=== PATIENT | female | born 1965 | race Caucasian/White ===

== ENCOUNTER 2017-02-16 22:07 | Emergency (ER) | payer MEDICAID ==
[2017-02-16 22:33] VITALS: BP 124/81
[2017-02-16] MEDS ORDERED: Insulin Aspart 100 Units/ML 3 ML Pen SUBCUT ONE (22:37)
[2017-02-16] MEDS: Insulin Aspart 100 Units/ML 3 ML Pen SUBCUT ONE ×2 (22:38→23:41)
--- NOTE | 2017-02-16 23:52 | ER ---
DATE SEEN: 02/16/2017 TIME SEEN: 10 p.m. REASON FOR VISIT: "I need refill of insulin." HISTORY OF PRESENT ILLNESS: A 51-year-old female with type 1 diabetes, poorly controlled, came to the ER because she needed a refill of NovoLog. She ran out this morning. She complains of mild headache, but denies nausea, vomiting, weakness or any signs of infection. PAST MEDICAL HISTORY: Hyponatremia, type 1 diabetes, UTI, dehydration, and depression. MEDICATIONS: Please see the nurse's notes. ALLERGIES: Also reviewed and updated. PHYSICAL EXAMINATION: GENERAL: She is well hydrated. VITAL SIGNS: Her blood pressure is normal and temperature is 98.4. ENT: Negative. CHEST: Clear. Heart: Regular rhythm. EXTREMITIES: No edema. LABORATORY DATA: Sodium was 126 and chloride 95. Anion gap is 13 and glucose is 405. IMPRESSION: 1. Hyponatremia. 2. Hyperglycemia. PLAN: I advised her to take lots of fluids. I did suggest IV crystalloid in the emergency room, but patient is in a hurry and promised to take fluids orally. I reviewed previous records and noted that her sodium has been 118 at one point last year, so this is not anything new. Followup was advised on Saturday with myself or any primary care physician in the [facility]. /[id number] RONNY/LESLI
== END 2017-02-16 23:35 | disposition home or self-care (01) ==
LOC: FB.ED 22:07
DX: E10.65 Type 1 diabetes mellitus with hyperglycemia (principal); E87.1 Hypo-osmolality and hyponatremia; Z76.0 Encounter for issue of repeat prescription
CPT/HCPCS: 36415; 80048; 82962; 85025; 96372; 99283; A9270

== ENCOUNTER 2017-03-17 19:17 | Emergency (ER) | payer MEDICAID ==
[2017-03-17] MEDS ORDERED: Nicotine 14 MG/24 Hr Patch TRDERM ONE (19:41)
[2017-03-17] MEDS ORDERED: Ketorolac 60 MG/2 ML SDV IM ONE (19:42)
[2017-03-17 20:00] LABS: ACETAMINOPHEN 16 ug/mL (10-30)
--- NOTE | 2017-03-17 21:00 | EDM.PDOC ---
ED HPI GENERAL MEDICAL PROBLEM - General Chief Complaint: Behavioral/Psych Stated Complaint: SUICIDAL Time Seen by Provider: 03/17/17 20:00 Source of Information: Reports: Patient History Limitations: Reports: No Limitations - History of Present Illness INITIAL COMMENTS - FREE TEXT/NARRATIVE: Patient with history of depression and psychosis states she has been worse since seeing her therapist last week, and had some medicine changes. Being having more visual and auditory hallucinations. Today didn't feel safe alone felt like she would hurt herself or others. Onset: Today Frontal Headache Pain Score (Numeric/FACES): 7 - Related Data Allergies Allergy/AdvReac Type Severity Reaction Status Date / Time olanzapine [From Zyprexa] Allergy Unknown Swelling Verified 03/17/17 19:22 Penicillins Allergy Unknown Anaphylactic Verified 03/17/17 19:22 Shock Sulfa (Sulfonamide Allergy Unknown Chills Verified 03/17/17 19:22 Antibiotics) clindamycin Allergy Nausea Verified 03/17/17 19:22 raw tomatoes Allergy Unknown Rash Uncoded 03/17/17 19:22 Bees Allergy Swelling Uncoded 03/17/17 19:22 Home Meds: Home Meds RX: Subcutaneous Insulin Pump [Insulin Pump] 1 each [facility] ASDIRECTED 11/23/15 [ History] DULoxetine [Cymbalta] 60 mg PO DAILY 02/16/17 [History] QUEtiapine [SEROquel] 500 mg PO BEDTIME 02/16/17 [History] RX: LORazepam 1 mg PO BEDTIME 02/16/17 [History] RX: Melatonin 10 mg PO BEDTIME 02/16/17 [History] traZODone [traZODone] 150 mg PO BEDTIME 02/16/17 [History] QUEtiapine [SEROquel] 1 tab PO DAILY 03/17/17 [History] RX: Benztropine [Cogentin] 1 tab PO BID PRN 03/17/17 [History] RX: Haloperidol [Haldol] 2 tab PO BID 03/17/17 [History] RX: hydrOXYzine HCl [hydrOXYzine] 1 tab PO DAILY PRN 03/17/17 [History] Past Medical History HEENT History: Reports: Impaired Vision Respiratory History: Reports: Asthma, Intubation, Previous, Pneumonia, Recurrent Gastrointestinal History: Reports: Pancreatitis Genitourinary History: Reports: Diabetic Nephropathy, Renal Disease, Urinary Incontinence Other Genitourinary History: renal nodules CARD PLACER History: Reports: Other OB/BYN History: Musculoskeletal History: Reports: Arthritis, Back Pain, Chronic, Fibromyalgia Neurological History: Reports: Headaches, Chronic, Neuropathy, Diabetic Other Neuro History: Has pain and difficulty walking due to neuropathy, uses wheelchair to get around. Psychiatric History: Reports: Anxiety, Bipolar, Depression, Hallucinations, Psych Hospitalization(s), PTSD, Schizophrenia, Suicide Attempt Endocrine/Metabolic History: Reports: Diabetes, Type II Dermatologic History: Reports: Cellulitis - Infectious Disease History Infectious Disease History: Reports: Chicken Pox - Past Surgical History HEENT Surgical History: Reports: Oral Surgery GI Surgical History: Reports: Appendectomy, Cholecystectomy, Hernia, Abdominal Musculoskeletal Surgical History: Reports: Arthroscopic Knee, Arthroscopic Procedure Social & Family History - Family History Family Medical History: Unobtainable Other HEENT Family History: PT IS ADOPTED. DOES NOT KNOW HX - Tobacco Use Smoking Status *Q: Current Every Day Smoker Years of Tobacco use: 38 Packs/Tins Daily: 1 Used Tobacco, but Quit: No Second Hand Smoke Exposure: No - Caffeine Use Caffeine Use: Reports: Soda - Recreational Drug Use Recreational Drug Use: No ED ROS GENERAL - Review of Systems Review Of Systems: ROS reveals no pertinent complaints other than HPI. Constitutional: Reports: No Symptoms Respiratory: Reports: No Symptoms ED EXAM, BEHAVIORAL HEALTH - Physical Exam Exam: See Below Exam Limited By: No Limitations General Appearance: Alert Throat/Mouth: Normal Inspection Head: Atraumatic Respiratory/Chest: No Respiratory Distress Cardiovascular: Normal Peripheral Pulses, Regular Rate, Rhythm Neurological: Alert Psychiatric: Depressed Mood, Homicidal Thoughts, Suicidal Thoughts Skin Exam: Warm COURSE, BEHAVIORAL HEALTH COMP - Course Vital Signs: Last Vital Signs Temp 36.7 C 03/17/17 19:30 Pulse 90 03/17/17 19:30 Resp 18 03/17/17 19:30 BP 136/71 03/17/17 19:30 Pulse Ox 98 03/17/17 19:30 Orders, Labs, Meds: Active Orders 24 hr Category Date Time Status CULTURE URINE [RM] Stat Lab 03/17/17 20:20 Received TSH ULTRASENSITIVE [CHEM] Stat Lab 03/17/17 19:40 Received Laboratory Tests 03/17/17 03/17/17 03/17/17 Range/Units 19:40 19:40 19:40 WBC 9.0 (4.5-12.0) X10-3/uL RBC 5.08 (3.23-5.20) x10(6)uL Hgb 16.5 H (11.5-15.5) g/dL Hct 47.3 (30.0-51.3) % MCV 93.1 (80-96) fL MCH 32.5 (27.7-33.6) pg MCHC 34.9 (32.2-35.4) g/dL RDW 13.1 (11.5-15.5) % Plt Count 373 H (125-369) X10(3)uL MPV 8.2 (7.4-10.4) fL Neut % (Auto) 68.9 (46-82) % Lymph % (Auto) 24.2 (13-37) % Independence % (Auto) 4.4 (4-12) % Eos % (Auto) 1 (1.0-5.0) % Baso % (Auto) 1 (0-2) % Neut # (Auto) 6.2 (1.6-8.3) # Lymph # (Auto) 2.2 (0.6-5.0) # Independence # (Auto) 0.4 (0.0-1.3) # Eos # (Auto) 0.1 (0.0-0.8) # Baso # (Auto) 0.1 (0.0-0.2) # Sodium 126 L (135-145) mmol/L Potassium 4.2 (3.5-5.3) mmol/L Chloride 93 L (100-110) mmol/L Carbon Dioxide 23 (23-29) mmol/L BUN 10 (5-20) mg/dL Creatinine 0.7 (0.6-1.3) mg/dL Est Cr Clr Drug Dosing 100.51 mL/min Estimated GFR (MDRD) > 60 (>60) BUN/Creatinine Ratio 14.3 (9-20) Glucose 183 H D (80-116) mg/dL Calcium 9.1 (8.6-10.2) mg/dL Urine Color (YELLOW) Urine Appearance (CLEAR) Urine pH (5.0-6.5) Ur Specific Eden (1.010-1.025) Urine Protein (NEGATIVE) mg/dL Urine Glucose (UA) (NEGATIVE) mg/dL Urine Ketones (NEGATIVE) mg/dL Urine Occult Blood (NEGATIVE) Urine Nitrite (NEGATIVE) Urine Bilirubin (NEGATIVE) Urine Urobilinogen (NEGATIVE) mg/dL Ur Leukocyte Esterase (NEGATIVE) Urine RBC (0) Urine WBC (0) Ur Squamous Epith Cells (NS,R,O) Urine Bacteria (NS) Urine Opiates Screen (NEGATIVE) Ur Oxycodone Screen (NEGATIVE) Ur Propoxyphene Screen (NEGATIVE) Acetaminophen 16 (10-30) ug/mL Ur Barbituates Screen (NEGATIVE) Ur Tricyclics Screen (NEGATIVE) Ur Phencyclidine Scrn (NEGATIVE) Ur Amphetamine Screen (NEGATIVE) Urine MDMA Screen (NEGATIVE) U Benzodiazepines Scrn (NEGATIVE) U Cocaine Metab Screen (NEGATIVE) U Marijuana (THC) Screen (NEGATIVE) Ethyl Alcohol < 0.01 (<0.01) % 03/17/17 03/17/17 Range/Units 20:20 20:20 WBC (4.5-12.0) X10-3/uL RBC (3.23-5.20) x10(6)uL Hgb (11.5-15.5) g/dL Hct (30.0-51.3) % MCV (80-96) fL MCH (27.7-33.6) pg MCHC (32.2-35.4) g/dL RDW (11.5-15.5) % Plt Count (125-369) X10(3)uL MPV (7.4-10.4) fL Neut % (Auto) (46-82) % Lymph % (Auto) (13-37) % Independence % (Auto) (4-12) % Eos % (Auto) (1.0-5.0) % Baso % (Auto) (0-2) % Neut # (Auto) (1.6-8.3) # Lymph # (Auto) (0.6-5.0) # Independence # (Auto) (0.0-1.3) # Eos # (Auto) (0.0-0.8) # Baso # (Auto) (0.0-0.2) # Sodium (135-145) mmol/L Potassium (3.5-5.3) mmol/L Chloride (100-110) mmol/L Carbon Dioxide (23-29) mmol/L BUN (5-20) mg/dL Creatinine (0.6-1.3) mg/dL Est Cr Clr Drug Dosing mL/min Estimated GFR (MDRD) (>60) BUN/Creatinine Ratio (9-20) Glucose (80-116) mg/dL Calcium (8.6-10.2) mg/dL Urine Color Yellow (YELLOW) Urine Appearance Slightly cloudy (CLEAR) Urine pH 5.0 (5.0-6.5) Ur Specific Eden 1.015 (1.010-1.025) Urine Protein Negative (NEGATIVE) mg/dL Urine Glucose (UA) Normal (NEGATIVE) mg/dL Urine Ketones Negative (NEGATIVE) mg/dL Urine Occult Blood Negative (NEGATIVE) Urine Nitrite Negative (NEGATIVE) Urine Bilirubin Negative (NEGATIVE) Urine Urobilinogen Normal (NEGATIVE) mg/dL Ur Leukocyte Esterase Small H (NEGATIVE) Urine RBC 0-5 (0) Urine WBC 5-10 (0) Ur Squamous Epith Cells Occasional (NS,R,O) Urine Bacteria Many H (NS) Urine Opiates Screen Negative (NEGATIVE) Ur Oxycodone Screen Negative (NEGATIVE) Ur Propoxyphene Screen Negative (NEGATIVE) Acetaminophen (10-30) ug/mL Ur Barbituates Screen Negative (NEGATIVE) Ur Tricyclics Screen Negative (NEGATIVE) Ur Phencyclidine Scrn Negative (NEGATIVE) Ur Amphetamine Screen Negative (NEGATIVE) Urine MDMA Screen Negative (NEGATIVE) U Benzodiazepines Scrn Positive H (NEGATIVE) U Cocaine Metab Screen Negative (NEGATIVE) U Marijuana (THC) Screen Negative (NEGATIVE) Ethyl Alcohol (<0.01) % Medications Discontinued Medications Generic Name Dose Route Start Last Admin Trade Name Ramonita PRN Reason Stop Dose Admin Ketorolac Tromethamine 60 mg 03/17/17 19:42 03/17/17 19:55 Toradol IM 03/17/17 19:43 60 mg ONETIME ONE Administration Nicotine 14 mg 03/17/17 19:41 03/17/17 19:56 Habitrol TRDERM 03/17/17 19:42 14 mg ONETIME ONE Administration Departure - Departure Time of Disposition: 21:15 Disposition: DC/Tfer to Psych Hosp/Unit 65 Condition: fair Clinical Impression: Hallucinations - Discharge Information Referrals: Dennis Lemon MD [Primary Care Provider] - Forms: ED Department Discharge - My Orders Last 24 Hours: My Active Orders 03/17/17 19:40 TSH ULTRASENSITIVE [CHEM] Stat 03/17/17 20:20 CULTURE URINE [RM] Stat - Assessment/Plan Last 24 Hours: My Active Orders 03/17/17 19:40 TSH ULTRASENSITIVE [CHEM] Stat 03/17/17 20:20 CULTURE URINE [RM] Stat
[2017-03-18 05:09] VITALS: BP 130/63
--- NOTE | 2017-03-20 00:47 | ER ---
DATE SEEN: 03/17/2017 ADDENDUM: Urine culture result, Klebsiella pneumoniae sensitive to all antibiotics. The patient was transferred to [facility] by Dr. Dodge on 03/17/2017, and urine culture was performed. I have called the [facility] and talked to Xena and Mary and we faxed report to them so they can treat this urinary tract infection appropriately. /[id number] JAKE/LESLI MOON
== END 2017-03-18 05:55 ==
LOC: FB.ED 19:17
DX: R44.0 Auditory hallucinations (principal); R44.1 Visual hallucinations; R45.851 Suicidal ideations; J45.909 Unspecified asthma, uncomplicated; E11.40 Type 2 diabetes mellitus with diabetic neuropathy, unspecified; E11.21 Type 2 diabetes mellitus with diabetic nephropathy; M19.90 Unspecified osteoarthritis, unspecified site; F41.9 Anxiety disorder, unspecified; F17.210 Nicotine dependence, cigarettes, uncomplicated; Z90.49 Acquired absence of other specified parts of digestive tract; Z98.890 Other specified postprocedural states; Z88.0 Allergy status to penicillin; Z88.8 Allergy status to other drugs, medicaments and biological substances; Z87.442 Personal history of urinary calculi; Z91.030 Bee allergy status; Z88.1 Allergy status to other antibiotic agents; Z91.018 Allergy to other foods; Z88.2 Allergy status to sulfonamides; Z79.899 Other long term (current) drug therapy; Z87.01 Personal history of pneumonia (recurrent)
CPT/HCPCS: 36415; 80048; 80305; 81001; 82962; 84443; 85025; 87086; 87088; 87186; 96372; 99285; A9270; G0480; J1885

== ENCOUNTER 2018-03-08 17:51 | Emergency (ER) | payer MEDICAID, OTHER ==
[2018-03-08] MEDS: traMADol 50 MG Tab PO ONE (19:14)
[2018-03-08 22:16] VITALS: BP 142/70
--- NOTE | 2018-03-09 09:33 | ER ---
DATE SEEN: 03/08/2018 ADDENDUM: TIME SEEN: The patient was seen at 1825 hours. PLAN: She has already a followup appointment with her primary care doctor within the next several days. No changes in medication. /[id number] JAKE/LESLI
--- NOTE | 2018-03-10 09:25 | ER ---
DATE SEEN: 03/08/2018 TIME SEEN: 2000 hours. ADDENDUM: I was asked to see the patient for shoulder pain. She had seen Dr. Saleem. She requested to have a brace. Frequent falls. Pain is in the right arm, to the neck, and to the back, moderate in intensity. REVIEW OF SYSTEMS: No chest pain or shortness of breath. PAST MEDICAL HISTORY: Type 1 diabetes, schizophrenia. PHYSICAL EXAMINATION: GENERAL: Not in distress. VITAL SIGNS: Blood pressure is normal. Pulse is 92. EXTREMITIES: Right shoulder, some tenderness to palpation, but no signs of trauma. Positive impingement sign. Decreased range of motion on abduction. DIAGNOSTIC DATA: CT spine and head and shoulder x-ray were unremarkable to my interpretation. Official report and final read pending. IMPRESSION: Right shoulder pain due to rotator cuff tendinitis. PLAN: Shoulder sling to wear for 2 days. NSAIDs p.r.n. Follow up in the office. Consider physical therapy evaluation and treatment. /[id number] RONNY/LESLI
--- NOTE | 2018-03-10 12:19 | CR ---
INDICATION: Right shoulder pain. SHOULDER: Five images of the right shoulder in 3 projections were obtained and revealed no evidence of a fracture, dislocation or other significant bone or joint abnormality. Adjacent ribs appear intact. MTDD
--- NOTE | 2018-03-10 13:10 | CT ---
INDICATION: Falling chronically, most likely due to diabetes mellitus peripheral neuropathy. CT HEAD WITHOUT CONTRAST: Serial contiguous 2.5 and 5 mm sections were obtained through the brain without contrast 03/08/2018. Calcifications are noted in the left vertebral artery and internal carotid arteries. There also appears to be calcification in the basilar and right vertebral artery distally. Total exam DLP = 950.31 mGy-cm. No shift of midline structures was noted. Ventricles appear to be unremarkable. A lacunar infarct is noted at the right caudate nucleus. An additional 1 or 2 lacunar infarcts are suggested in the right basal ganglia. No finding to strongly suggest an acute intracranial abnormality was seen - no bleeding site or hematoma was noted. There does appear to be mild frontal cortical atrophy with subdural hygromas present. Visualized paranasal sinuses, except for a small retention cyst in a left sphenoidal air cell, and mastoid air cells were well-aerated. No cranial fracture site was noted. IMPRESSION: 1. No acute intracranial abnormality - no bleeding site or hematoma. 2. Lacunar infarcts on the right. 3. Cerebrovascular disease. 4. Retention cyst left sphenoidal air cell. [facility]
--- NOTE | 2018-03-10 13:21 | CT ---
INDICATION: Fall, right brachial plexopathy. CT CERVICAL SPINE WITHOUT CONTRAST: Spiral 2.5 mm axial sections were obtained through the cervical spine without contrast and revealed moderate degenerative changes with some narrowing at the atlantoodontoid joint. Hypertrophic spurring and some sclerosis is also present at that joint. Total exam DLP = 565.86 mGy-cm. There are some mild anterior hypertrophic changes off the C6-7 vertebral bodies. Vertebral body and disk heights were fairly well maintained. There is some straightening of the normal cervical lordosis, which could be positional but should be correlated clinically. There appears to be a tilt of the cervical spine to the left of moderate degree. This could be positional. A definite fracture or dislocation was not identified. Prevertebral space and bone density appeared to be normal. IMPRESSION: 1. No acute fracture or dislocation. 2. The odontoid appears to be intact, but there are degenerative changes at the atlantoodontoid joint. The atlas also appears to be intact. MTDD
--- NOTE | 2018-03-10 15:02 | ER ---
DATE SEEN: 03/08/2018 HISTORY OF PRESENT ILLNESS: This is a 52-year-old, , chronic smoker of 2 packs a day for [id number] and has chronic history of falling, fell 2 times yesterday and fell today. Today, she fell x2. While falling today, she fell onto her left side, and has neck discomfort that radiates down the right arm, with dysesthesia to the wrist from the anterior part of her arm. PAST MEDICAL HISTORY: Significant for psychosis; schizophrenia; depression; anxiety disorder; hallucination, visual and auditory; type 2 diabetes with diabetic peripheral neuropathy; early satiety; constipation; retinopathy; and falling. Right mid upper extremity lipoma, large, no change. Renal nodule. Urine incontinence. History of pneumonia in the past. History of pancreatitis in the past. Asthma with history of intubation. PREVIOUS SURGERIES: Appendectomy, hysterectomy, cholecystectomy, abdominal hernia surgery, and arthroscopic knee evaluation with arthritis in the knees. REVIEW OF SYSTEMS: Negative except as noted above. ALLERGIES: Zyprexa, penicillin, sulfa, clindamycin, tomatoes, and peas. MEDICATIONS: 1. Ibuprofen. 2. Cymbalta 60 mg daily. 3. Cogentin 2 tabs b.i.d. as needed. 4. Haldol 3 tabs p.o. daily. 5. Quetiapine 800 mg at bedtime. 6. Melatonin 10 mg at bedtime. 7. Lorazepam 1.5 at bedtime. 8. Trazodone 150 mg at bedtime. 9. Hydroxyzine 1 tablet daily p.r.n. 10.Insulin pump. She is not aware how her glucose is running, it has not been checked for some time. DIAGNOSTIC STUDIES: CAT scan of the head has been done several years ago. She has ankylosing spondylitis also with hypertension. The last head CT scan was 10 years ago. PHYSICAL EXAMINATION: VITAL SIGNS: Blood pressure 128/54, pulse rate 83, respirations 20, oxygen saturation 92% on room air, and temperature is 36.7 degrees centigrade. GENERAL: When I walked in to the room, the patient was sitting on a wheelchair. I asked why she is sitting on a wheelchair, and she says "that is the best way for me to get around, otherwise I fall down a lot. I have this diabetic peripheral neuropathy and difficulty with walking." HEENT: The patient is edentulous and smells of smoke. PERRLA intact. EOMs normal. Hearing is good. Pharynx is without abnormality. Gag in place. Tongue midline. Uvula midline. NECK: No cervical adenopathy, thyromegaly, or masses. Neck shows no cervical tenderness in the cervical spine. LUNGS: Clear without rales or rhonchi or wheezes. HEART: S1 and S2. No murmur. No chest wall pain. ABDOMEN: Nontender. No guarding or abdominal discomfort. She has had moderate increased abdominal girth. Old umbilical laparoscopic scar noted without hernia. No hernia has been present. Bowel sounds present. MUSCULOSKELETAL: She has moderate pain when she rotates her head to the left. She fell to the left, but she has pain in the right brachial plexus area that radiates down to the antecubital fossa, and then slightly to the mid forearm on the right-hand side. No loss of sensation. She has clubbing of fingers. No rashes noted. I did not have her stand up, but she has good muscle strength in upper and lower extremities. No pronator drift and good strength in the lower extremities. Deep tendon reflexes, after several tries, she has 1+ in upper and lower extremities, biceps, knee jerks, and ankle jerks. SKIN: She has stasis dermatitis in mid lower legs to her toes without any lesions or dermatologic break in the skin or sign of infection. WORKING DIAGNOSES: 1. Cervical spine injury with strain of the brachial plexus on the right side secondary to falling today. 2. History of falling all the time secondary to diabetic peripheral neuropathy. 3. Diabetic retinopathy, gastroenteropathy, and also insulin-dependent diabetic with insulin pump. 4. Obesity. 5. She does not have hypertension. 6. Hallucinations, not presently. 7. Right arm lipoma, benign, unchanged. 8. Ankylosing spondylitis. PLAN: The patient's CBC, CMP, hemoglobin A1c, CT cervical spine, and CT head. /[id number] LS/MODL
--- NOTE | 2018-03-14 10:58 | ER ---
DATE SEEN: 03/08/2018 ADDENDUM: Urine culture came back as Klebsiella pneumoniae. It was a cathed specimen from yesterday. The patient is sensitive to all the medicines. The patient was started on Cipro 500 mg, 6 tablets, 1 tablet b.i.d. for 3 days to treat the urinary tract infection. Prescription had been [facility] in [facility], (I believe this is in [place]). Also, I called her home to inform her that she had a urinary tract infection and needed to be started on antibiotic. No answer was noted after 3 calls. Consequently, a message was left at 1750 hours for her to brain picker the Cipro 500 mg b.i.d. at [facility] and follow up with doctor in a week with a recheck of urine. /[id number] JAKE/LESLI
== END 2018-03-08 20:47 | disposition home or self-care (01) ==
LOC: FB.ED 17:51
DX: S16.1XXA Strain of muscle, fascia and tendon at neck level, initial encounter (principal); F20.9 Schizophrenia, unspecified; F32.9 Major depressive disorder, single episode, unspecified; F41.9 Anxiety disorder, unspecified; E11.42 Type 2 diabetes mellitus with diabetic polyneuropathy; J45.909 Unspecified asthma, uncomplicated; E66.9 Obesity, unspecified; I10 Essential (primary) hypertension; M45.9 Ankylosing spondylitis of unspecified sites in spine; D17.21 Benign lipomatous neoplasm of skin and subcutaneous tissue of right arm; E11.319 Type 2 diabetes mellitus with unspecified diabetic retinopathy without macular edema; Z91.81 History of falling; Z88.0 Allergy status to penicillin; Z88.2 Allergy status to sulfonamides; Z88.1 Allergy status to other antibiotic agents; Z88.8 Allergy status to other drugs, medicaments and biological substances; Z90.49 Acquired absence of other specified parts of digestive tract; F17.210 Nicotine dependence, cigarettes, uncomplicated; W19.XXXA Unspecified fall, initial encounter; Z79.4 Long term (current) use of insulin; Z68.35 Body mass index [BMI] 35.0-35.9, adult
CPT/HCPCS: 36415; 70450; 72125; 73030; 80053; 81001; 83036; 85025; 87086; 87088; 87186; 99284; A9270

== ENCOUNTER 2018-04-26 06:45 | Emergency (ER) | payer MEDICAID ==
[2018-04-26] MEDS ORDERED: Ketorolac 30 MG/ML SDV IVPUSH ONE (07:01)
[2018-04-26] MEDS ORDERED: Aspirin 81 MG Tab.Chew PO ONE (07:03)
--- NOTE | 2018-04-26 07:17 | EDM.PDOC ---
ED HPI GENERAL MEDICAL PROBLEM - General Chief Complaint: Chest Pain Stated Complaint: CHEST PAIN Time Seen by Provider: 04/26/18 07:05 Source of Information: Reports: Patient, EMS History Limitations: Reports: No Limitations - History of Present Illness INITIAL COMMENTS - FREE TEXT/NARRATIVE: Awoke w/ substernal non-radiating chest pain @2 hours ago. Characterized as a sharpness and heaviness. No prior h/o cardiac dz. Also c/o cough and slight shortness of breath. Onset: Today Duration: Hour(s): (2) Location: Reports: Chest Severity: Moderate chest Pain Score (Numeric/FACES): 7 - Related Data Allergies Allergy/AdvReac Type Severity Reaction Status Date / Time olanzapine [From Zyprexa] Allergy Unknown Swelling Verified 04/26/18 07:57 Penicillins Allergy Unknown Anaphylactic Verified 04/26/18 07:57 Shock Sulfa (Sulfonamide Allergy Unknown Chills Verified 04/26/18 07:57 Antibiotics) clindamycin Allergy Nausea Verified 04/26/18 07:57 raw tomatoes Allergy Unknown Rash Uncoded 03/17/17 19:22 Bees Allergy Swelling Uncoded 03/17/17 19:22 Home Meds: Home Meds Subcutaneous Insulin Pump [Insulin Pump] 1 each ASDIRECTED 11/23/15 [History] DULoxetine [Cymbalta] 60 mg PO DAILY 02/16/17 [History] LORazepam 1.5 mg PO BEDTIME 02/16/17 [History] QUEtiapine [SEROquel] 800 mg PO BEDTIME 02/16/17 [History] traZODone 150 mg PO BEDTIME 02/16/17 [History] Benztropine [Cogentin] 2 tab PO BID PRN 03/17/17 [History] Haloperidol [Haldol] 3 tab PO DAILY 03/17/17 [History] hydrOXYzine HCl [hydrOXYzine] 1 tab PO DAILY PRN 03/17/17 [History] Ibuprofen 800 mg PO TID 03/08/18 [History] Past Medical History HEENT History: Reports: Impaired Vision Respiratory History: Reports: Asthma, Intubation, Previous, Pneumonia, Recurrent Gastrointestinal History: Reports: Pancreatitis Genitourinary History: Reports: Diabetic Nephropathy, Renal Disease, Urinary Incontinence Other Genitourinary History: renal nodules 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 Psychiatric History: Reports: Anxiety, Bipolar, Depression, Hallucinations, Psych Hospitalization(s), PTSD, Schizophrenia, Suicide Attempt Endocrine/Metabolic History: Reports: Diabetes, Type II Dermatologic History: Reports: Cellulitis - Infectious Disease History Infectious Disease History: Reports: Chicken Pox - Past Surgical History HEENT Surgical History: Reports: Oral Surgery GI Surgical History: Reports: Appendectomy, Cholecystectomy, Hernia, Abdominal Musculoskeletal Surgical History: Reports: Arthroscopic Knee, Arthroscopic Procedure Social & Family History - Family History Family Medical History: Unobtainable Other HEENT Family History: PT IS ADOPTED. DOES NOT KNOW HX - Tobacco Use Smoking Status *Q: Current Every Day Smoker Tobacco Use Within Last Twelve Months: Cigarettes - Caffeine Use Caffeine Use: Reports: Coffee ED ROS GENERAL - Review of Systems Review Of Systems: ROS reveals no pertinent complaints other than HPI. ED EXAM, GENERAL - Physical Exam Exam: See Below Exam Limited By: No Limitations General Appearance: Alert, WD/WN, No Apparent Distress Ears: Normal External Exam Nose: Normal Inspection Throat/Mouth: No Airway Compromise Head: Atraumatic, Normocephalic Neck: Full Range of Motion Respiratory/Chest: No Respiratory Distress, Normal Breath Sounds, Rhonchi (few scattered), Other (+reproducible chest wall tenderness) Cardiovascular: Regular Rate, Rhythm, No Edema, No Murmur, No Rub GI/Abdominal: Soft, Non-Tender Back Exam: Full Range of Motion Extremities: Normal Inspection Neurological: Alert, No Motor/Sensory Deficits Psychiatric: Normal Affect, Normal Mood Skin Exam: Warm, Dry, Intact EKG INTERPRETATION EKG Date: 04/26/18 Time: 07:00 Rhythm: NSR Rate (Beats/Min): 85 Comparison: No Change (04/20/16) EKG Interpretation Comments: No significant change from 04/20/16 Course - Vital Signs Last Recorded V/S: Last Vital Signs Temp 36.4 C 04/26/18 06:50 Pulse 91 04/26/18 06:50 Resp 18 04/26/18 06:50 BP 110/56 L 04/26/18 06:50 Pulse Ox 93 L 04/26/18 06:50 - Orders/Labs/Meds Orders: Active Orders 24 hr Category Date Time Status EKG Documentation Completion [RC] ASDIRECTED Care 04/26/18 07:00 Active CXR [Chest 1V Frontal] [CR] Stat Exams 04/26/18 07:00 Taken EKG 12 Lead [EK] Stat Ther 04/26/18 07:00 Ordered Labs: Laboratory Tests 04/26/18 04/26/18 04/26/18 Range/Units 07:15 07:15 07:15 WBC 8.3 (4.5-12.0) X10-3/uL RBC 5.03 (3.23-5.20) x10(6)uL Hgb 16.3 H (11.5-15.5) g/dL Hct 46.8 (30.0-51.3) % MCV 93.0 (80-96) fL MCH 32.4 (27.7-33.6) pg MCHC 34.8 (32.2-35.4) g/dL RDW 13.3 (11.5-15.5) % Plt Count 324 (125-369) X10(3)uL MPV 8.2 (7.4-10.4) fL Neut % (Auto) 69.3 (46-82) % Lymph % (Auto) 21.3 (13-37) % Dougherty % (Auto) 6.4 (4-12) % Eos % (Auto) 2 (1.0-5.0) % Baso % (Auto) 1 (0-2) % Neut # (Auto) 5.8 (1.6-8.3) # Lymph # (Auto) 1.8 (0.6-5.0) # Dougherty # (Auto) 0.5 (0.0-1.3) # Eos # (Auto) 0.1 (0.0-0.8) # Baso # (Auto) 0.1 (0.0-0.2) # Sodium 128 L (135-145) mmol/L Potassium 3.6 (3.5-5.3) mmol/L Chloride 94 L (100-110) mmol/L Carbon Dioxide 24 (21-32) mmol/L BUN 16 (7-18) mg/dL Creatinine 0.9 (0.55-1.02) mg/dL Est Cr Clr Drug Dosing TNP Estimated GFR (MDRD) > 60 (>60) BUN/Creatinine Ratio 17.8 (9-20) Glucose 104 D (80-116) mg/dL Calcium 8.7 (8.6-10.2) mg/dL Total Bilirubin 0.3 (0.1-1.3) mg/dL AST 13 D (5-25) IU/L ALT 23 D (12-36) U/L Alkaline Phosphatase 115 H (56-112) IU/L Troponin I < 0.017 L (<0.017-0.056) ng/mL Total Protein 6.8 (6.0-8.0) g/dL Albumin 2.8 L (3.5-5.2) g/dL Globulin 4.0 g/dL Albumin/Globulin Ratio 0.7 / Range/Units 08:50 WBC (4.5-12.0) X10-3/uL RBC (3.23-5.20) x10(6)uL Hgb (11.5-15.5) g/dL Hct (30.0-51.3) % MCV (80-96) fL MCH (27.7-33.6) pg MCHC (32.2-35.4) g/dL RDW (11.5-15.5) % Plt Count (125-369) X10(3)uL MPV (7.4-10.4) fL Neut % (Auto) (46-82) % Lymph % (Auto) (13-37) % Dougherty % (Auto) (4-12) % Eos % (Auto) (1.0-5.0) % Baso % (Auto) (0-2) % Neut # (Auto) (1.6-8.3) # Lymph # (Auto) (0.6-5.0) # Dougherty # (Auto) (0.0-1.3) # Eos # (Auto) (0.0-0.8) # Baso # (Auto) (0.0-0.2) # Sodium (135-145) mmol/L Potassium (3.5-5.3) mmol/L Chloride (100-110) mmol/L Carbon Dioxide (21-32) mmol/L BUN (7-18) mg/dL Creatinine (0.55-1.02) mg/dL Est Cr Clr Drug Dosing Estimated GFR (MDRD) (>60) BUN/Creatinine Ratio (9-20) Glucose (80-116) mg/dL Calcium (8.6-10.2) mg/dL Total Bilirubin (0.1-1.3) mg/dL AST (5-25) IU/L ALT (12-36) U/L Alkaline Phosphatase (56-112) IU/L Troponin I < 0.017 L (<0.017-0.056) ng/mL Total Protein (6.0-8.0) g/dL Albumin (3.5-5.2) g/dL Globulin g/dL Albumin/Globulin Ratio Meds: Medications Discontinued Medications Generic Name Dose Route Start Last Admin Trade Name Freq PRN Reason Stop Dose Admin Aspirin 324 mg 04/26/18 07:03 04/26/18 07:06 Aspirin PO 04/26/18 07:04 324 mg ONETIME ONE Administration Ketorolac Tromethamine 15 mg 04/26/18 07:01 04/26/18 07:11 Toradol IVPUSH 04/26/18 07:02 15 mg ONETIME ONE Administration - Radiology Interpretation Free Text/Narrative:: CXR: NAD - Re-Assessments/Exams Free Text/Narrative Re-Assessment/Exam: 04/26/18 09:20 Symptoms resolved. Departure - Departure Time of Disposition: 09:20 Disposition: Home, Self-Care 01 Condition: Good Clinical Impression: Costochondritis, acute Instructions: Costochondritis, [id number] Referrals: PCP,Unknown [Primary Care Provider] - Forms: ED Department Discharge Additional Instructions: Take OTC Ibuprofen as needed. Follow up with your doctor in 2-3 days. Return to the ER if symptoms worsen. - My Orders Last 24 Hours: My Active Orders 04/26/18 07:00 EKG Documentation Completion [RC] ASDIRECTED CXR [Chest 1V Frontal] [CR] Stat EKG 12 Lead [EK] Stat - Assessment/Plan Last 24 Hours: My Active Orders 04/26/18 07:00 EKG Documentation Completion [RC] ASDIRECTED CXR [Chest 1V Frontal] [CR] Stat EKG 12 Lead [EK] Stat
[2018-04-26 09:47] VITALS: BP 112/59
--- NOTE | 2018-04-28 12:52 | CR ---
INDICATIONS: Chest pain. CHEST, ONE VIEW: An AP portable upright view of the chest was obtained, 2017 no comparisons. The chest is rotated to the right. The heart is prominent, but not grossly enlarged, emphasized by the AP positioning and possibly angulation. A definite active infiltrate or effusion was not identified. Overlying EKG leads are noted. IMPRESSION: No acute process. When clinically possible, PA and lateral views of the chest may be helpful for further evaluation. MTDD
== END 2018-04-26 09:30 | disposition home or self-care (01) ==
LOC: FB.ED 06:45
DX: M94.0 Chondrocostal junction syndrome [Tietze] (principal); E11.21 Type 2 diabetes mellitus with diabetic nephropathy; E11.40 Type 2 diabetes mellitus with diabetic neuropathy, unspecified; F17.210 Nicotine dependence, cigarettes, uncomplicated; Z88.0 Allergy status to penicillin; Z88.8 Allergy status to other drugs, medicaments and biological substances; Z91.018 Allergy to other foods; Z88.1 Allergy status to other antibiotic agents; Z88.2 Allergy status to sulfonamides; Z79.899 Other long term (current) drug therapy
CPT/HCPCS: 36415; 71045; 80053; 84484; 85025; 93005; 96374; 99285; A9270; J1885

== ENCOUNTER 2019-01-01 12:53 | Inpatient (IN) | payer MEDICAID ==
[2019-01-01] MEDS: Insulin Lispro 100 Unit/ML 3 ML KwikPen SUBCUT SCH ×2 (15:02→18:27)
[2019-01-01] MEDS: Sodium Chloride 0.9% 1,000 ML IV SCH ×2 (15:07→23:52)
[2019-01-01] MEDS: Levofloxacin/Dextrose 5%-Water 500 MG in Premix Bag 1 BAG IV SCH (15:12)
--- NOTE | 2019-01-01 17:00 | PCM.HP ---
H&P History of Present Illness - General Date of Service: 01/01/19 Admit Problem/Dx: Admission Diagnosis/Problem Admission Diagnosis/Problem UTI, Urinary tract infectious disease Source of Information: Patient, Old Records History Limitations: Reports: No Limitations - History of Present Illness Initial Comments - Free Text/Narative: This is a 53-year-old female who has poorly controlled type 1 diabetes, who presented to the clinic today with dysuria,and frequency of urination. She was found to have a urinary tract infection. In addition she's had multiple falls at home, at least 4 the last 24 hours. She feels very weak. She feels dehydrated. Sugars have been all over the board. She is being admitted to treat the infection, have physical and occupational therapy evaluation and management sugars. She has a history of schizophrenia, didn't peripheral neuropathy that previously stable she denies fever chills but feels unsafe at home and has had some visual hallucinations. - Related Data Allergies/Adverse Reactions: Allergies Allergy/AdvReac Type Severity Reaction Status Date / Time olanzapine [From Zyprexa] Allergy Unknown Swelling Verified 04/26/18 07:57 Penicillins Allergy Unknown Anaphylactic Verified 04/26/18 07:57 Shock Sulfa (Sulfonamide Allergy Unknown Chills Verified 04/26/18 07:57 Antibiotics) clindamycin Allergy Nausea Verified 04/26/18 07:57 raw tomatoes Allergy Unknown Rash Uncoded 04/26/18 20:31 Bees Allergy Swelling Uncoded 04/26/18 20:31 Home Medications: Home Meds Subcutaneous Insulin Pump [Insulin Pump] 1 each ASDIRECTED 11/23/15 [History] DULoxetine [Cymbalta] 60 mg PO BEDTIME 02/16/17 [History] LORazepam 1.5 mg PO BEDTIME 02/16/17 [History] QUEtiapine [SEROquel] 800 mg PO BEDTIME 02/16/17 [History] traZODone 150 mg PO BEDTIME 02/16/17 [History] Haloperidol [Haldol] 5 mg PO BEDTIME 03/17/17 [History] hydrOXYzine HCl [hydrOXYzine] 25 mg PO DAILY PRN 03/17/17 [History] Ibuprofen 800 mg PO TID PRN 03/08/18 [History] Benztropine [Cogentin] 2 mg PO BEDTIME 01/01/19 [History] Insulin Aspart [NovoLOG] 0 - 25 units SUBCUT ASDIRECTED PRN 01/01/19 [History] Past Medical History HEENT History: Reports: Impaired Vision Respiratory History: Reports: Asthma, Intubation, Previous, Pneumonia, Recurrent Other Respiratory History: chronic smoker. 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 Psychiatric History: Reports: Anxiety, Bipolar, Depression, Hallucinations, Psych Hospitalization(s), PTSD, Schizophrenia, Suicide Attempt Endocrine/Metabolic History: Reports: Diabetes, Type II Dermatologic History: Reports: Cellulitis - Infectious Disease History Infectious Disease History: Reports: Chicken Pox - Past Surgical History HEENT Surgical History: Reports: Oral Surgery Respiratory Surgical History: Reports: None GI Surgical History: Reports: Appendectomy, Cholecystectomy, Hernia, Abdominal Female Surgical History: Reports: Hysterectomy Musculoskeletal Surgical History: Reports: Arthroscopic Knee, Arthroscopic Procedure Social & Family History - Family History Family Medical History: Unobtainable Other HEENT Family History: PT IS ADOPTED. DOES NOT KNOW HX - Caffeine Use Caffeine Use: Reports: Soda Other Caffeine Use: 6 pack a day H&P Review of Systems - Review of Systems: Review Of Systems: ROS reveals no pertinent complaints other than HPI. Exam - Exam Exam: See Below - Vital Signs Weight: 104.508 kg - Exam General: Alert, Oriented, 4 HEENT: PERRLA, Hearing Intact, Mucosa Moist & [place], Nares Patent, Normal Nasal Septum, Posterior Pharynx Clear, Conjunctiva Clear, EOMI, EACs Clear, TMs Clear Neck: Supple, Trachea Midline, 2 Lungs: Clear to Auscultation, Normal Respiratory Effort Cardiovascular: Regular Rate, Regular Rhythm GI/Abdominal Exam: Normal Bowel Sounds, Soft, Non-Tender, No Organomegaly, No Distention, No Abnormal Bruit, No Mass, Pelvis Stable (Female) Exam: Deferred Rectal (Female) Exam: Deferred Back Exam: Normal Inspection, Full Range of Motion, NT Extremities: Normal Inspection, Normal Range of Motion, Non-Tender, No Pedal Edema, Normal Capillary Refill Skin: Warm, Dry, Intact Neurological: Cranial Nerves Intact, Reflexes Equal Bilateral Neuro Extensive - Mental Status: Alert, Oriented x3, Normal Mood/Affect, Normal Cognition Neuro Extensive - Motor, Sensory, Reflexes: CN II-XII Intact, Normal Gait, Normal Reflexes Psychiatric: Alert, Normal Affect, Normal Mood EKG INTERPRETATION Rhythm: NSR - Problem List (1) Weakness SNOMED Code(s): 02593230 ICD Code: R53.1 - WEAKNESS Status: Acute Current Visit: Yes (2) Type 1 diabetes SNOMED Code(s): 75149222 ICD Code: E10.9 - TYPE 1 DIABETES MELLITUS WITHOUT COMPLICATIONS Status: Acute Current Visit: Yes Qualifiers: Diabetes mellitus complication status: with neurologic complications (3) Polypharmacy SNOMED Code(s): 987493687 ICD Code: Z79.899 - OTHER LONGTERM (CURRENT) DRUG THERAPY Status: Acute Current Visit: Yes (4) Frequent falls SNOMED Code(s): 982898821 ICD Code: R29.6 - REPEATED FALLS Status: Acute Current Visit: Yes (5) Diabetic neuropathy SNOMED Code(s): 225639950, 043402048 ICD Code: E11.40 - TYPE 2 DIABETES MELLITUS WITH DIABETIC NEUROPATHY, UNSP Status: Chronic Current Visit: Yes Qualifiers: Diabetes mellitus type: type 1 (6) Depressive disorder SNOMED Code(s): 30440816 ICD Code: F32.9 - MAJOR DEPRESSIVE DISORDER, SINGLE EPISODE, UNSPECIFIED Status: Chronic Current Visit: No (7) Hyponatremia SNOMED Code(s): 61450057 ICD Code: E87.1 - HYPO-OSMOLALITY AND HYPONATREMIA Status: Acute Current Visit: No Problem Details: Oral fluids and foods with Na content would be beneficial. See PCP this week. (8) UTI, Urinary tract infectious disease SNOMED Code(s): 64237592 ICD Code: N39.0 - URINARY TRACT INFECTION, SITE NOT SPECIFIED Status: Acute Current Visit: No Problem List Initiated/Reviewed/Updated: Yes Orders Last 24hrs: Active Orders 24 hr Category Date Time Status Patient Status [ADT] Routine ADT 01/01/19 13:48 Active Blood Glucose Check, Bedside [RC] TIDMEALS Care 01/01/19 13:48 Active EKG Documentation Completion [RC] ASDIRECTED Care 01/01/19 13:50 Active Height and Weight [RC] DAILY Care 01/01/19 13:48 Active Intake and Output [RC] QSHIFT Care 01/01/19 13:49 Active Oxygen Therapy [RC] PRN Care 01/01/19 13:48 Active Up With Assistance [RC] ASDIRECTED Care 01/01/19 13:48 Active VTE/DVT Education [RC] Per Unit Routine Care 01/01/19 13:48 Active Vital Signs [RC] Q4H Care 01/01/19 13:48 Active OT Evaluation and Treatment [CONS] Routine Cons 01/01/19 13:48 Active PT Evaluation and Treatment [CONS] Routine Cons 01/01/19 13:48 Active Consistent Carbohydrate Diet [DIET] Diet 01/01/19 Breakfast Active BASIC METABOLIC PANEL,BMP [CHEM] AM Lab 01/02/19 05:11 Ordered CBC WITH AUTO DIFF [HEME] AM Lab 01/02/19 05:11 Ordered MAGNESIUM [CHEM] AM Lab 01/02/19 05:11 Ordered TROPONIN I [CHEM] AM Lab 01/02/19 05:11 Ordered Insulin Lispro [HumaLOG] Med 01/01/19 14:25 Active See Protocol SUBCUT TIDMEALS Levofloxacin/Dextrose 5%-Water [Levaquin in D5W 500 MG/ Med 01/01/19 14:00 Active 100 ML] 500 mg Premix Bag 1 bag IV Q24H Sodium Chloride 0.9% [Normal Saline] 1,000 ml Med 01/01/19 14:00 Active IV ASDIRECTED Resuscitation Status Routine Resus Stat 01/01/19 13:48 Ordered EKG 12 Lead [EK] Stat Ther 01/01/19 13:48 Ordered Medication Orders Sodium Chloride (Normal Saline) 1,000 mls @ 125 mls/hr IV ASDIRECTED HINA Last Admin: 01/01/19 15:07 Dose: 125 mls/hr Levofloxacin/Dextrose 500 mg/ (Premix) 100 mls @ 100 mls/hr IV Q24H HINA Last Admin: 01/01/19 15:12 Dose: 100 mls/hr Insulin Human Lispro (Humalog) 0 unit SUBCUT TIDMEALS HINA; Protocol Last Admin: 01/01/19 15:02 Dose: 10 units Assessment/Plan Comment:: Admit to medical bed, start IV fluids, and a sliding scale of insulin. Also chose Levaquin 500 mg daily IV for the urinary tract infection. I have requested a consultation with physical occupational therapy and the medical delivery driver.
[2019-01-01] MEDS ORDERED: Nicotine 21 MG/24 Hr Patch TRDERM SCH (18:00)
[2019-01-01] MEDS ORDERED: LORazepam 1 MG Tab PO SCH (21:00)
[2019-01-01] MEDS: traZODone 50 MG Tab PO SCH (21:40)
[2019-01-01] MEDS: Haloperidol 5 MG Tab PO SCH (21:40)
[2019-01-01] MEDS: QUEtiapine 100 MG Tab PO SCH (21:41)
[2019-01-01] MEDS: DULoxetine 60 MG Cap PO SCH (21:58)
[2019-01-01] MEDS: Benztropine 1 MG Tab PO SCH (21:58)
[2019-01-01] MEDS: Aluminum Hydroxide/Magnesium Hydroxide Susp 30 ML Cup PO PRN (22:01)
[2019-01-02] MEDS: Aluminum Hydroxide/Magnesium Hydroxide Susp 30 ML Cup PO PRN (00:16)
[2019-01-02] MEDS ORDERED: Insulin Lispro 100 Unit/ML 3 ML KwikPen SUBCUT ONE ×2 (01:56→17:00)
[2019-01-02] MEDS: Sodium Chloride 0.9% 1,000 ML IV SCH (07:59)
[2019-01-02] MEDS: Insulin Lispro 100 Unit/ML 3 ML KwikPen SUBCUT SCH ×2 (08:39→12:46)
[2019-01-02] MEDS ORDERED: Remove Patch*NICOTINE TRDERM SCH (09:00)
--- NOTE | 2019-01-02 12:57 | PN ---
DATE SEEN: 01/02/2019 HISTORY OF PRESENT ILLNESS: Alysia Robb is a 53-year-old female, admitted yesterday with UTI and recurrent falls. Compliance with medications uncertain. Exact contents of urine not known, done at the clinic. Reports will be obtained. Insulin pump in use, uncertain of reliability, consistency, care. Cares for it for herself. Compliance uncertain. Meds since admission have been markedly high. Uncertain of dose or circumstance. Compliance with medications, host of medications on board. Living situation uncertain, lives in apartment, 3 days of care Saturday, Saturday, and Saturday with 4-hour caregiver, daughter lives in the building. Exact intervention unknown. History of bipolar disease and hallucinations. LABORATORY STUDIES: Of significance upon admission, white count 5,800, hemoglobin 15.5. Electrolytes were satisfactory. Random glucose 240, previous numbers 381, 373, 326. A1c unknown. Troponin was negative. Magnesium and calcium were reasonable. RADIOGRAPHS: None indicated. OBJECTIVE: VITAL SIGNS: 104.8, 65 kg, 36.3, 91, 120/84, mean blood pressure 94, 17 is the respiration, 92 is the O2 saturation. GENERAL: A bit distracted, soft-spoken. Speech was fluent. NECK: Benign. Thyroid small. CHEST: Clear in all lung hastings. HEART: No ectopy or murmur. ABDOMEN: Rotund. ASSESSMENT: 1. Urinary tract infection, circumstances under consideration. 2. Recurrent falls. 3. Med toxicity is an issue. 4. Control of diabetes an issue. PLAN: We will obtain A1c. We will obtain records of concern. We will start on a regular dose of premeal Humalog and Lantus at bedtime. Adjustments accordingly. We will recheck urine. Leak Patcher to be involved actively in future planning. /[id number] REDD/LESLI MOON
[2019-01-02] MEDS: Levofloxacin/Dextrose 5%-Water 500 MG in Premix Bag 1 BAG IV SCH (14:47)
[2019-01-02] MEDS ORDERED: Nicotine 21 MG/24 Hr Patch TRDERM SCH (18:00)
[2019-01-02] MEDS ORDERED: LORazepam 0.5 MG Tab PO SCH (21:00)
[2019-01-02] MEDS ORDERED: Insulin Glargine,Human Rec. Analog 100 Units/ML 3 ML Pen SUBCUT SCH (21:00)
[2019-01-02] MEDS: DULoxetine 60 MG Cap PO SCH (21:36)
[2019-01-02] MEDS: traZODone 50 MG Tab PO SCH (21:36)
[2019-01-02] MEDS: Benztropine 1 MG Tab PO SCH (21:36)
[2019-01-02] MEDS: Haloperidol 5 MG Tab PO SCH (21:37)
[2019-01-02] MEDS: QUEtiapine 100 MG Tab PO SCH (21:37)
[2019-01-03] MEDS: Insulin Lispro 100 Unit/ML 3 ML KwikPen SUBCUT SCH (08:29)
[2019-01-03] MEDS ORDERED: Ciprofloxacin 250 MG Tab PO SCH (09:15)
[2019-01-03 09:30] VITALS: BP 122/78
--- NOTE | 2019-01-05 08:31 | DISCH ---
DISCHARGE DATE: 01/03/2019 REASON FOR VISIT: 1. Urosepsis, urinary tract infection. 2. Recurrent falls, labile. 3. Poorly controlled diabetes mellitus. HISTORY OF PRESENT ILLNESS: Alysia Robb is a 53-year-old, female, lives alone, was seen by Obed Kelly PA-C, at [facility], admitted to the hospital through Dr. Lemon. Complicated weakness, fatigue, and increasing disability. Blood sugars have been poorly controlled. Upon admission, the vital signs were stable. Exam was documented by Dr. Lemon. HOSPITAL COURSE: The patient was admitted to the hospital for treatment and intervention. She was placed on IV fluids, IV antibiotics, and appropriate intervention. Clinical response was satisfactory. Fever abated. Repeat urine on 01/02/2019 revealed persistent glucosuria, ketones, hematuria but reduced white cells. CBC revealed white count 5800, hemoglobin 15.5, electrolytes were satisfactory. A1c was 11.0, troponin was 0, blood sugar was markedly high. She usually uses her pump. Pump was inadequate, not available. She was placed on sliding scale insulin to begin with and then switched over to premeal Humalog and Lantus in the evening. Improved sugar in the 200s on the morning of January 03. Spoke the issues, implications, care given on board, 3 days a week for 4 hours caregiver comes in, daughter in attendance. Other living situations are being strongly considered. Will be discharged home today, close followup, Night Order Selector will follow up other living situation to be strongly pursued. DISCHARGE MEDICATIONS: Clearly defined and provided to the patient. FOLLOWUP APPOINTMENT PLAN: Obed Kelly PA-C, at [facility]. /[id number] REDD/LESLI
== END 2019-01-03 10:10 | disposition home health service (06) | DRG 690 ==
LOC: FB.MS 12:53
PROVIDERS: ADMIT Family Medicine; ATTEND Family Medicine
DX: N39.0 Urinary tract infection, site not specified (principal); R29.6 Repeated falls; E10.65 Type 1 diabetes mellitus with hyperglycemia; E10.21 Type 1 diabetes mellitus with diabetic nephropathy; E10.40 Type 1 diabetes mellitus with diabetic neuropathy, unspecified; Z79.4 Long term (current) use of insulin; Z96.41 Presence of insulin pump (external) (internal); R44.1 Visual hallucinations; M19.90 Unspecified osteoarthritis, unspecified site; M54.9 Dorsalgia, unspecified; M79.7 Fibromyalgia; G89.29 Other chronic pain; F31.9 Bipolar disorder, unspecified; Z86.69 Personal history of other diseases of the nervous system and sense organs; F41.9 Anxiety disorder, unspecified; F43.10 Post-traumatic stress disorder, unspecified; Z79.899 Other long term (current) drug therapy; Z87.01 Personal history of pneumonia (recurrent); H54.7 Unspecified visual loss; Z91.19 Patient's noncompliance with other medical treatment and regimen; Z88.1 Allergy status to other antibiotic agents; Z91.030 Bee allergy status; Z91.018 Allergy to other foods; Z88.0 Allergy status to penicillin; Z88.2 Allergy status to sulfonamides; Z88.8 Allergy status to other drugs, medicaments and biological substances
CPT/HCPCS: 36415; 80048; 81001; 82947; 82962; 83036; 83735; 84484; 85025; 93005; 97165-GO; A9270-GY; J1815; J1815-GY; J1956; J7030

== ENCOUNTER 2019-02-08 22:19 | Observation (INO) | payer MEDICAID ==
[2019-02-08] MEDS ORDERED: Albuterol/Ipratropium 3.0-0.5 MG/3 ML Neb Soln NEB ONE (22:24)
--- NOTE | 2019-02-08 22:26 | EDM.PDOC ---
ED HPI GENERAL MEDICAL PROBLEM - General Stated Complaint: UNRESPONSIVE Time Seen by Provider: 02/08/19 22:18 Source of Information: Reports: Patient, EMS History Limitations: Reports: Altered Mental Status - History of Present Illness INITIAL COMMENTS - FREE TEXT/NARRATIVE: 53 y.o.w.f with IDDM came to the ed by EMS after she was found unresponsive at her home. As per EMS, pt fell multiple times in te past few days. On arrival, pt was lethargic was opening her eye to voice. Followed commands. Denied pain. No family was present. As per EMS, accu check was > [address] was open, GAG was present, GCS was 13. Except for Eccymosis at her lower extremities, no signes of trauma was seen, pt had no focal weakness. She was too weak to sit up. BP: 109/75 Pulse ox 95% on 4 liters O2 by NC RR 20 Pulse 115 Temp 36.4 Onset Date: 02/08/19 Onset Time: 22:00 Duration: Hour(s): Location: Reports: Generalized Quality: Reports: Other Severity: Severe (pt wwas found unresponsive) Improves with: Reports: Other Worsens with: Reports: Other Context: Reports: Other (H/O IDDM) Associated Symptoms: Reports: Syncope - Related Data Allergies Allergy/AdvReac Type Severity Reaction Status Date / Time olanzapine [From Zyprexa] Allergy Unknown Swelling Verified 04/26/18 07:57 Penicillins Allergy Unknown Anaphylactic Verified 04/26/18 07:57 Shock Sulfa (Sulfonamide Allergy Unknown Chills Verified 04/26/18 07:57 Antibiotics) clindamycin Allergy Nausea Verified 04/26/18 07:57 raw tomatoes Allergy Unknown Rash Uncoded 04/26/18 20:31 Bees Allergy Swelling Uncoded 04/26/18 20:31 Home Meds: Home Meds Subcutaneous Insulin Pump [Insulin Pump] 1 each ASDIRECTED 11/23/15 [History] DULoxetine [Cymbalta] 60 mg PO BEDTIME 02/16/17 [History] LORazepam 1.5 mg PO BEDTIME 02/16/17 [History] QUEtiapine [SEROquel] 800 mg PO BEDTIME 02/16/17 [History] traZODone 150 mg PO BEDTIME 02/16/17 [History] Haloperidol [Haldol] 5 mg PO BEDTIME 03/17/17 [History] hydrOXYzine HCl [hydrOXYzine] 25 mg PO DAILY PRN 03/17/17 [History] Ibuprofen 800 mg PO TID PRN 03/08/18 [History] Benztropine [Cogentin] 2 mg PO BEDTIME 01/01/19 [History] Insulin Aspart [NovoLOG] 0 - 25 units SUBCUT ASDIRECTED PRN 01/01/19 [History] Ciprofloxacin [Ciprofloxacin HCl] 250 mg PO BID #10 tablet 01/03/19 [Rx] Past Medical History HEENT History: Reports: Impaired Vision Respiratory History: Reports: Asthma, Intubation, Previous, Pneumonia, Recurrent Other Respiratory History: chronic smoker. Gastrointestinal History: Reports: Pancreatitis Genitourinary History: Reports: Diabetic Nephropathy, Renal Disease, Urinary Incontinence Other Genitourinary History: renal nodules [employer] History: Reports: Other [employer] History: Musculoskeletal History: Reports: Arthritis, Back Pain, Chronic, Fibromyalgia Neurological History: Reports: Headaches, Chronic, Neuropathy, Diabetic Other Neuro History: Has pain and difficulty walking due to neuropathy, uses wheelchair to get around. Psychiatric History: Reports: Anxiety, Bipolar, Depression, Hallucinations, Psych Hospitalization(s), PTSD, Schizophrenia, Suicide Attempt Endocrine/Metabolic History: Reports: Diabetes, Type II Dermatologic History: Reports: Cellulitis - Infectious Disease History Infectious Disease History: Reports: Chicken Pox - Past Surgical History HEENT Surgical History: Reports: Oral Surgery Respiratory Surgical History: Reports: None GI Surgical History: Reports: Appendectomy, Cholecystectomy, Hernia, Abdominal Female Surgical History: Reports: Hysterectomy Musculoskeletal Surgical History: Reports: Arthroscopic Knee, Arthroscopic Procedure Social & Family History - Family History Family Medical History: Unobtainable Other HEENT Family History: PT IS ADOPTED. DOES NOT KNOW HX - Caffeine Use Caffeine Use: Reports: Soda Other Caffeine Use: 6 pack a day ED ROS GENERAL - Review of Systems Review Of Systems: Unable To Obtain ED EXAM, NEURO - Physical Exam Exam: See Below Exam Limited By: Altered Mental Status General Appearance: Lethargic, Moderate Distress Eye Exam: Bilateral Eye: Normal Inspection Ears: Normal External Exam Nose: Normal Inspection Throat/Mouth: Normal Lips, Normal Voice, No Airway Compromise, Other (poor dentition, dry mucosal membrane) Head Exam: Atraumatic, Normocephalic Neck: Normal Inspection, Supple, Non-Tender, Full Range of Motion Respiratory/Chest: Wheezing, Prolonged Expiration Cardiovascular: Normal Peripheral Pulses, Regular Rate, Rhythm GI/Abdominal: Normal Bowel Sounds, Soft, Non-Tender, No Organomegaly, Pelvis Stable (Female) Exam: Deferred Rectal (Female) Exam: Deferred Neurological: Other (lethargic) Back Exam: Normal Inspection Extremities: Normal Range of Motion, Other (Ecchymosis left lower leg) Psychiatric: Other Skin Exam: Warm, Dry, Intact, Normal Color, Ecchymosis (left leg) Course - Vital Signs Text/Narrative:: 53 y.o.w.f with IDDM came to the ed by EMS after she was found unresponsive at her home. As per EMS, pt fell multiple times in te past few days. On arrival, pt was lethargic was opening her eye to voice. Followed commands. Denied pain. No family was present. As per EMS, accu check was > [address] was open, GAG was present, GCS was 13. Except for Eccymosis at her lower extremities, no signes of trauma was seen, pt had no focal weakness. She was too weak to sit up. BP: 109/75 Pulse ox 95% on 4 liters O2 by NC RR 20 Pulse 115 Temp 36.4 PE: WNWD W F, GCS 13. lethargic, hypoxemic, dry mucosal membranes, ecchymoses at the lower extremities. No focal weakness Imaging: CXR: NAD Labs: CBC showed abnormal labs: HGB of 17.7 HCT 52.y Pls 385. BMP abnormal: Na 131 Cl 92 Carbon dioxide 19 GFR 57. ABG pH 7.27 pCO2 HCO3 17 pO2 57 O2 87 Impression: Frequent falls, DKA,IDDM, Partially compensated Metabolic acidosis , Dehydration,UTI Tx: NS, Duoneb, Reg insulin, Insulin drip, Sodium bicarbonate, Levaquin Reexam: Pt improved to a GCS of 15 Plan: Admit to ICU Last Recorded V/S: Last Vital Signs Temp 36.5 C 02/09/19 01:10 Pulse 90 02/09/19 01:10 Resp 15 02/09/19 01:10 BP 134/62 02/09/19 01:10 Pulse Ox 94 L 02/09/19 01:10 - Orders/Labs/Meds Orders: Active Orders 24 hr Category Date Time Status Patient Status [ADT] Routine ADT 02/09/19 00:27 Active Cardiac Monitoring [RC] CONTINUOUS Care 02/09/19 00:30 Active Oxygen Therapy [RC] PRN Care 02/09/19 00:27 Active Pulse Oximetry [RC] CONTINUOUS Care 02/09/19 00:30 Active RT Aerosol Therapy [RC] ASDIRECTED Care 02/08/19 22:25 Active RT Aerosol Therapy [RC] ASDIRECTED Care 02/09/19 00:31 Active Up With Assistance [RC] ASDIRECTED Care 02/09/19 00:27 Active VTE/DVT Education [RC] Per Unit Routine Care 02/09/19 00:27 Active Vital Signs [RC] Q4H Care 02/09/19 00:27 Active Clear Liquid Diet [DIET] Diet 02/09/19 Breakfast Active Chest 1V Frontal [CR] Stat Exams 02/08/19 22:24 Taken Albuterol/Ipratropium [DuoNeb 3.0-0.5 MG/3 ML] Med 02/09/19 00:27 Active 3 ml INH ONETIME PRN Insulin Regular, Human [HumuLIN R] 100 unit Med 02/09/19 00:30 Active Sodium Chloride 0.9% [Normal Saline] 99 ml IV TITRATE Ondansetron [Zofran] Med 02/09/19 00:27 Active 4 mg IV Q4H PRN Sodium Chloride 0.9% [Normal Saline] 1,000 ml Med 02/08/19 22:45 Active IV ASDIRECTED Sodium Chloride 0.9% [Normal Saline] 1,000 ml Med 02/09/19 00:00 Active IV ASDIRECTED Resuscitation Status Routine Resus Stat 02/09/19 00:27 Ordered Medication Orders Albuterol/Ipratropium (Duoneb 3.0-0.5 Mg/3 Ml) 3 ml INH ONETIME PRN PRN Reason: Shortness Of Breath/wheezing Sodium Chloride (Normal Saline) 1,000 mls @ 999 mls/hr IV ASDIRECTED HINA Last Admin: 02/08/19 22:50 Dose: 999 mls/hr Sodium Chloride (Normal Saline) 1,000 mls @ 125 mls/hr IV ASDIRECTED [facility] Last Admin: 02/09/19 01:30 Dose: 125 mls/hr Insulin Human Regular 100 unit (/ Sodium Chloride) 100 mls @ 9.95 mls/hr IV TITRATE HINA; Protocol Last Admin: 02/09/19 01:44 Dose: 0.1 units/kg/hr, 11.36 mls/hr Ondansetron HCl (Zofran) 4 mg IV Q4H PRN PRN Reason: Nausea/Vomiting Labs: Laboratory Tests 02/08/19 02/08/19 02/08/19 Range/Units 22:48 22:48 22:48 WBC 7.3 (4.5-12.0) X10-3/uL RBC 5.79 H (3.23-5.20) x10(6)uL Hgb 17.4 H (11.5-15.5) g/dL Hct 52.7 H (30.0-51.3) % MCV 91.1 (80-96) fL MCH 30.0 (27.7-33.6) pg MCHC 33.0 (32.2-35.4) g/dL RDW 14.3 (11.5-15.5) % Plt Count 386 H (125-369) X10(3)uL MPV 8.3 (7.4-10.4) fL Neut % (Auto) 64.0 (46-82) % Lymph % (Auto) 27.2 (13-37) % [place] % (Auto) 6.7 (4-12) % Eos % (Auto) 1 (1.0-5.0) % Baso % (Auto) 1 (0-2) % Neut # (Auto) 4.6 (1.6-8.3) # Lymph # (Auto) 2.0 (0.6-5.0) # [place] # (Auto) 0.5 (0.0-1.3) # Eos # (Auto) 0.1 (0.0-0.8) # Baso # (Auto) 0.1 (0.0-0.2) # ABG pH (7.35-7.45) ABG pCO2 (35-45) mmHg ABG pO2 (83-108) mmHg ABG HCO3 (22-26) mmol/L ABG O2 Saturation (96-97) % ABG Base Excess (-2-2) Sher Test O2 Delivery Device Oxygen Flow Rate L Sodium 131 L (135-145) mmol/L Potassium 4.0 (3.5-5.3) mmol/L Chloride 92 L D (100-110) mmol/L Carbon Dioxide 19 L (21-32) mmol/L BUN 17 (7-18) mg/dL Creatinine 1.0 (0.55-1.02) mg/dL Est Cr Clr Drug Dosing TNP Estimated GFR (MDRD) 58 L (>60) BUN/Creatinine Ratio 17.0 (9-20) Glucose 497 H* (80-116) mg/dL Lactic Acid 0.8 (0.4-2.2) mmol/L Calcium 8.9 (8.6-10.2) mg/dL Magnesium 1.8 (1.8-2.5) mg/dL Total Bilirubin 0.5 (0.1-1.3) mg/dL Direct Bilirubin 0.13 (0.10-0.20) mg/dL AST 8 D (5-25) IU/L ALT 15 D (12-36) U/L Alkaline Phosphatase 113 H (56-112) IU/L Total Protein 6.7 (6.0-8.0) g/dL Albumin 2.9 L (3.5-5.2) g/dL Amylase 14 L (25-115) U/L TSH, Ultra Sensitive (0.36-3.74) IU/mL Ethyl Alcohol (<0.03) % 02/08/19 02/08/19 Range/Units 22:48 23:56 WBC (4.5-12.0) X10-3/uL RBC (3.23-5.20) x10(6)uL Hgb (11.5-15.5) g/dL Hct (30.0-51.3) % MCV (80-96) fL MCH (27.7-33.6) pg MCHC (32.2-35.4) g/dL RDW (11.5-15.5) % Plt Count (125-369) X10(3)uL MPV (7.4-10.4) fL Neut % (Auto) (46-82) % Lymph % (Auto) (13-37) % [place] % (Auto) (4-12) % Eos % (Auto) (1.0-5.0) % Baso % (Auto) (0-2) % Neut # (Auto) (1.6-8.3) # Lymph # (Auto) (0.6-5.0) # [place] # (Auto) (0.0-1.3) # Eos # (Auto) (0.0-0.8) # Baso # (Auto) (0.0-0.2) # ABG pH 7.28 L (7.35-7.45) ABG pCO2 37 (35-45) mmHg ABG pO2 59 L (83-108) mmHg ABG HCO3 17 L (22-26) mmol/L ABG O2 Saturation 87 L (96-97) % ABG Base Excess -2 (-2-2) Sher Test Passed O2 Delivery Device Nasal cannula Oxygen Flow Rate 2 L Sodium (135-145) mmol/L Potassium (3.5-5.3) mmol/L Chloride (100-110) mmol/L Carbon Dioxide (21-32) mmol/L BUN (7-18) mg/dL Creatinine (0.55-1.02) mg/dL Est Cr Clr Drug Dosing Estimated GFR (MDRD) (>60) BUN/Creatinine Ratio (9-20) Glucose (80-116) mg/dL Lactic Acid (0.4-2.2) mmol/L Calcium (8.6-10.2) mg/dL Magnesium (1.8-2.5) mg/dL Total Bilirubin (0.1-1.3) mg/dL Direct Bilirubin (0.10-0.20) mg/dL AST (5-25) IU/L ALT (12-36) U/L Alkaline Phosphatase (56-112) IU/L Total Protein (6.0-8.0) g/dL Albumin (3.5-5.2) g/dL Amylase (25-115) U/L TSH, Ultra Sensitive 2.42 (0.36-3.74) IU/mL Ethyl Alcohol < 0.03 (<0.03) % Meds: Medications Generic Name Dose Route Start Last Admin Trade Name Freq PRN Reason Stop Dose Admin Albuterol/Ipratropium 3 ml 02/09/19 00:27 Duoneb 3.0-0.5 Mg/3 Ml INH ONETIME PRN Shortness Of Breath/wheezing Sodium Chloride 1,000 mls @ 999 mls/hr 02/08/19 22:45 02/08/19 22:50 Normal Saline IV 999 mls/hr ASDIRECTED HINA Administration Sodium Chloride 1,000 mls @ 125 mls/hr 02/09/19 00:00 02/09/19 01:30 Normal Saline IV 125 mls/hr ASDIRECTED HINA Administration Insulin Human Regular 100 unit 100 mls @ 9.95 mls/hr 02/09/19 00:30 02/09/19 01:44 / Sodium Chloride IV 0.1 units/kg/hr TITRATE HINA 11.36 mls/hr Administration Protocol 0.1 UNITS/KG/HR Ondansetron HCl 4 mg 02/09/19 00:27 Zofran IV Q4H PRN Nausea/Vomiting Discontinued Medications Generic Name Dose Route Start Last Admin Trade Name Freq PRN Reason Stop Dose Admin Albuterol/Ipratropium 3 ml 02/08/19 22:24 02/08/19 22:49 Duoneb 3.0-0.5 Mg/3 Ml NEB 02/08/19 22:25 3 ml ONETIME ONE Administration Insulin Human Regular 10 unit 02/08/19 22:41 02/08/19 22:49 Humulin R IV 02/08/19 22:42 10 units ONETIME ONE Administration Insulin Human Regular 7 unit 02/08/19 23:59 02/09/19 00:03 Humulin R IV 02/09/19 00:00 7 unit ONETIME ONE Administration Levofloxacin 500 mg 02/09/19 02:28 Levaquin PO 02/09/19 02:29 ONETIME ONE Sodium Bicarbonate 5 meq 02/09/19 02:00 Sodium Bicarbonate 4.2% IVPUSH 02/09/19 02:01 ONETIME STA Sodium Bicarbonate 50 meq 02/09/19 02:26 02/09/19 02:31 Sodium Bicarbonate 8.4% IVPUSH 02/09/19 02:27 50 meq ONETIME ONE Administration Departure - Departure Time of Disposition: 01:00 Disposition: Admitted As Inpatient 64 Condition: Fair Clinical Impression: DKA (diabetic ketoacidoses) - Discharge Information - My Orders Last 24 Hours: My Active Orders 02/08/19 22:24 Chest 1V Frontal [CR] Stat 02/08/19 22:25 RT Aerosol Therapy [RC] ASDIRECTED 02/08/19 22:45 Sodium Chloride 0.9% [Normal Saline] 1,000 ml IV ASDIRECTED 02/09/19 00:00 Sodium Chloride 0.9% [Normal Saline] 1,000 ml IV ASDIRECTED 02/09/19 00:27 Patient Status [ADT] Routine Oxygen Therapy [RC] PRN Up With Assistance [RC] ASDIRECTED VTE/DVT Education [RC] Per Unit Routine Vital Signs [RC] Q4H Albuterol/Ipratropium [DuoNeb 3.0-0.5 MG/3 ML] 3 ml INH ONETIME PRN Ondansetron [Zofran] 4 mg IV Q4H PRN Resuscitation Status Routine 02/09/19 00:30 Cardiac Monitoring [RC] CONTINUOUS Pulse Oximetry [RC] CONTINUOUS Insulin Regular, Human [HumuLIN R] 100 unit Sodium Chloride 0.9% [Normal Saline] 99 ml IV TITRATE 02/09/19 00:31 RT Aerosol Therapy [RC] ASDIRECTED 02/09/19 Breakfast Clear Liquid Diet [DIET] - Assessment/Plan Last 24 Hours: My Active Orders 02/08/19 22:24 Chest 1V Frontal [CR] Stat 02/08/19 22:25 RT Aerosol Therapy [RC] ASDIRECTED 02/08/19 22:45 Sodium Chloride 0.9% [Normal Saline] 1,000 ml IV ASDIRECTED 02/09/19 00:00 Sodium Chloride 0.9% [Normal Saline] 1,000 ml IV ASDIRECTED 02/09/19 00:27 Patient Status [ADT] Routine Oxygen Therapy [RC] PRN Up With Assistance [RC] ASDIRECTED VTE/DVT Education [RC] Per Unit Routine Vital Signs [RC] Q4H Albuterol/Ipratropium [DuoNeb 3.0-0.5 MG/3 ML] 3 ml INH ONETIME PRN Ondansetron [Zofran] 4 mg IV Q4H PRN Resuscitation Status Routine 02/09/19 00:30 Cardiac Monitoring [RC] CONTINUOUS Pulse Oximetry [RC] CONTINUOUS Insulin Regular, Human [HumuLIN R] 100 unit Sodium Chloride 0.9% [Normal Saline] 99 ml IV TITRATE 02/09/19 00:31 RT Aerosol Therapy [RC] ASDIRECTED 02/09/19 Breakfast Clear Liquid Diet [DIET]
[2019-02-08] MEDS ORDERED: Insulin Regular, Human 100 Units/ML 3 ML Vial IV ONE ×2 (22:41→23:59)
[2019-02-08] MEDS ORDERED: Sodium Chloride 0.9% 1,000 ML IV SCH (22:45)
[2019-02-09] MEDS ORDERED: Albuterol/Ipratropium 3.0-0.5 MG/3 ML Neb Soln INH PRN (00:27)
[2019-02-09] MEDS ORDERED: Ondansetron 4 MG/2 ML SDV IV PRN (00:27)
[2019-02-09] MEDS: Sodium Chloride 0.9% 1,000 ML IV SCH ×2 (01:30→07:44)
[2019-02-09] MEDS ORDERED: Sodium Bicarbonate 8.4% 50 MEQ/50 ML Syringe IVPUSH ONE (02:26)
[2019-02-09] MEDS ORDERED: Levofloxacin 500 MG Tab PO ONE (02:28)
[2019-02-09] MEDS ORDERED: Sodium Chloride 0.9% 10 ML Syringe FLUSH PRN (02:43)
[2019-02-09] MEDS: Insulin Lispro 100 Unit/ML 3 ML KwikPen SUBCUT SCH ×3 (08:05→17:59)
--- NOTE | 2019-02-09 09:01 | PCM.HP ---
H&P History of Present Illness - General Date of Service: 02/09/19 Admit Problem/Dx: Admission Diagnosis/Problem Admission Diagnosis/Problem Hyperglycemia Source of Information: Patient, Old Records History Limitations: Reports: No Limitations - History of Present Illness Initial Comments - Free Text/Narative: Patient admitted with high glucose, and in DKA. She was found unresponsive at home,after they called in ,and brought in by EMS.She then passed out,and was found to have a sugar of more than 600.Unable to give more history,except she wants to go home.She has Type 1 DM,Schizoaffective disorder,Bipolar Disorder , Fibromyalgia all poorly controlled.Her last A1C was 13.1 in January. abdomen left side Pain Score (Numeric/FACES): 5 - Related Data Allergies/Adverse Reactions: Allergies Allergy/AdvReac Type Severity Reaction Status Date / Time olanzapine [From Zyprexa] Allergy Unknown Swelling Verified 04/26/18 07:57 Penicillins Allergy Unknown Anaphylactic Verified 04/26/18 07:57 Shock Sulfa (Sulfonamide Allergy Unknown Chills Verified 04/26/18 07:57 Antibiotics) clindamycin Allergy Nausea Verified 04/26/18 07:57 raw tomatoes Allergy Unknown Rash Uncoded 04/26/18 20:31 Bees Allergy Swelling Uncoded 04/26/18 20:31 Home Medications: Home Meds Subcutaneous Insulin Pump [Insulin Pump] 1 each MC ASDIRECTED 11/23/15 [History] DULoxetine [Cymbalta] 60 mg PO BEDTIME 02/16/17 [History] LORazepam 1.5 mg PO BEDTIME 02/16/17 [History] QUEtiapine [SEROquel] 800 mg PO BEDTIME 02/16/17 [History] traZODone 150 mg PO BEDTIME 02/16/17 [History] Haloperidol [Haldol] 5 mg PO BEDTIME 03/17/17 [History] hydrOXYzine HCl [hydrOXYzine] 25 mg PO DAILY PRN 03/17/17 [History] Ibuprofen 800 mg PO TID PRN 03/08/18 [History] Benztropine [Cogentin] 2 mg PO BEDTIME 01/01/19 [History] Insulin Aspart [NovoLOG] 0 - 25 units SUBCUT ASDIRECTED PRN 01/01/19 [History] Ciprofloxacin [Ciprofloxacin HCl] 250 mg PO BID #10 tablet 01/03/19 [Rx] Past Medical History HEENT History: Reports: Impaired Vision Respiratory History: Reports: Asthma, Intubation, Previous, Pneumonia, Recurrent Other Respiratory History: chronic smoker. Gastrointestinal History: Reports: Pancreatitis Genitourinary History: Reports: Diabetic Nephropathy, Renal Disease, Urinary Incontinence Other Genitourinary History: renal nodules [employer] History: Reports: Other OB/BYN History: Musculoskeletal History: Reports: Arthritis, Back Pain, Chronic, Fibromyalgia Neurological History: Reports: Headaches, Chronic, Neuropathy, Diabetic Other Neuro History: Has pain and difficulty walking due to neuropathy, uses wheelchair to get around. Psychiatric History: Reports: Anxiety, Bipolar, Depression, Hallucinations, Psych Hospitalization(s), PTSD, Schizophrenia, Suicide Attempt Endocrine/Metabolic History: Reports: Diabetes, Type II Dermatologic History: Reports: Cellulitis - Infectious Disease History Infectious Disease History: Reports: Chicken Pox - Past Surgical History HEENT Surgical History: Reports: Oral Surgery Respiratory Surgical History: Reports: None GI Surgical History: Reports: Appendectomy, Cholecystectomy, Hernia, Abdominal Female Surgical History: Reports: Hysterectomy Musculoskeletal Surgical History: Reports: Arthroscopic Knee, Arthroscopic Procedure Social & Family History - Family History Family Medical History: Unobtainable Other HEENT Family History: PT IS ADOPTED. DOES NOT KNOW HX - Tobacco Use Smoking Status *Q: Current Every Day Smoker Years of Tobacco use: 37 Packs/Tins Daily: 2 Second Hand Smoke Exposure: Yes - Caffeine Use Caffeine Use: Reports: Soda Other Caffeine Use: 6 pack a day - Recreational Drug Use Recreational Drug Use: No H&P Review of Systems - Review of Systems: Review Of Systems: Unable To Obtain Exam - Exam Exam: See Below - Vital Signs Vital Signs: Last Vital Signs Temp 99.2 F 02/09/19 08:00 Pulse 85 02/09/19 08:00 Resp 19 02/09/19 08:00 BP 147/66 H 02/09/19 08:00 Pulse Ox 98 02/09/19 08:00 Weight: 99.564 kg - Exam General: Alert HEENT: PERRLA Neck: Supple Lungs: Clear to Auscultation Cardiovascular: Regular Rate GI/Abdominal Exam: Normal Bowel Sounds (Female) Exam: Deferred Rectal (Female) Exam: Deferred Skin: Warm Neurological: Cranial Nerves Intact Neuro Extensive - Mental Status: Alert, Oriented x3, Inattentive Neuro Extensive - Motor, Sensory, Reflexes: CN II-XII Intact, Normal Gait, Normal Reflexes Psychiatric: Alert, Normal Affect, Normal Mood - Patient Data Lab Results Last 24 hrs: Laboratory Results - last 24 hr 02/08/19 02/08/19 02/08/19 Range/Units 22:48 22:48 22:48 WBC 7.3 (4.5-12.0) X10-3/uL RBC 5.79 H (3.23-5.20) x10(6)uL Hgb 17.4 H (11.5-15.5) g/dL Hct 52.7 H (30.0-51.3) % MCV 91.1 (80-96) fL MCH 30.0 (27.7-33.6) pg MCHC 33.0 (32.2-35.4) g/dL RDW 14.3 (11.5-15.5) % Plt Count 386 H (125-369) X10(3)uL MPV 8.3 (7.4-10.4) fL Neut % (Auto) 64.0 (46-82) % Lymph % (Auto) 27.2 (13-37) % Carbon % (Auto) 6.7 (4-12) % Eos % (Auto) 1 (1.0-5.0) % Baso % (Auto) 1 (0-2) % Neut # (Auto) 4.6 (1.6-8.3) # Lymph # (Auto) 2.0 (0.6-5.0) # Carbon # (Auto) 0.5 (0.0-1.3) # Eos # (Auto) 0.1 (0.0-0.8) # Baso # (Auto) 0.1 (0.0-0.2) # ABG pH (7.35-7.45) ABG pCO2 (35-45) mmHg ABG pO2 (83-108) mmHg ABG HCO3 (22-26) mmol/L ABG O2 Saturation (96-97) % ABG Base Excess (-2-2) Sher Test O2 Delivery Device Oxygen Flow Rate L Sodium 131 L (135-145) mmol/L Potassium 4.0 (3.5-5.3) mmol/L Chloride 92 L D (100-110) mmol/L Carbon Dioxide 19 L (21-32) mmol/L BUN 17 (7-18) mg/dL Creatinine 1.0 (0.55-1.02) mg/dL Est Cr Clr Drug Dosing TNP Estimated GFR (MDRD) 58 L (>60) BUN/Creatinine Ratio 17.0 (9-20) Glucose 497 H* (80-116) mg/dL POC Glucose (80-116) mg/dL Lactic Acid 0.8 (0.4-2.2) mmol/L Calcium 8.9 (8.6-10.2) mg/dL Magnesium 1.8 (1.8-2.5) mg/dL Total Bilirubin 0.5 (0.1-1.3) mg/dL Direct Bilirubin 0.13 (0.10-0.20) mg/dL AST 8 D (5-25) IU/L ALT 15 D (12-36) U/L Alkaline Phosphatase 113 H (56-112) IU/L Total Protein 6.7 (6.0-8.0) g/dL Albumin 2.9 L (3.5-5.2) g/dL Amylase 14 L (25-115) U/L TSH, Ultra Sensitive (0.36-3.74) IU/mL Urine Color (YELLOW) Urine Appearance (CLEAR) Urine pH (5.0-6.5) Ur Specific Nimitz (1.010-1.025) Urine Protein (NEGATIVE) mg/dL Urine Glucose (UA) (NORMAL) mg/dL Urine Ketones (NEGATIVE) mg/dL Urine Occult Blood (NEGATIVE) Urine Nitrite (NEGATIVE) Urine Bilirubin (NEGATIVE) Urine Urobilinogen (NEGATIVE) mg/dL Ur Leukocyte Esterase (NEGATIVE) Urine RBC (0-5) Urine WBC (0-5) Ur Squamous Epith Cells (NS,R,O) Urine Bacteria (NS) Urine Opiates Screen (NEGATIVE) Ur Oxycodone Screen (NEGATIVE) Ur Propoxyphene Screen (NEGATIVE) Ur Barbituates Screen (NEGATIVE) Ur Tricyclics Screen (NEGATIVE) Ur Phencyclidine Scrn (NEGATIVE) Ur Amphetamine Screen (NEGATIVE) Urine MDMA Screen (NEGATIVE) U Benzodiazepines Scrn (NEGATIVE) U Cocaine Metab Screen (NEGATIVE) U Marijuana (THC) Screen (NEGATIVE) Ethyl Alcohol (<0.03) % 02/08/19 02/08/1919 Range/Units 22:48 23:56 01:34 WBC (4.5-12.0) X10-3/uL RBC (3.23-5.20) x10(6)uL Hgb (11.5-15.5) g/dL Hct (30.0-51.3) % MCV (80-96) fL MCH (27.7-33.6) pg MCHC (32.2-35.4) g/dL RDW (11.5-15.5) % Plt Count (125-369) X10(3)uL MPV (7.4-10.4) fL Neut % (Auto) (46-82) % Lymph % (Auto) (13-37) % Carbon % (Auto) (4-12) % Eos % (Auto) (1.0-5.0) % Baso % (Auto) (0-2) % Neut # (Auto) (1.6-8.3) # Lymph # (Auto) (0.6-5.0) # Carbon # (Auto) (0.0-1.3) # Eos # (Auto) (0.0-0.8) # Baso # (Auto) (0.0-0.2) # ABG pH 7.28 L (7.35-7.45) ABG pCO2 37 (35-45) mmHg ABG pO2 59 L (83-108) mmHg ABG HCO3 17 L (22-26) mmol/L ABG O2 Saturation 87 L (96-97) % ABG Base Excess -2 (-2-2) Sher Test Passed O2 Delivery Device Nasal cannula Oxygen Flow Rate 2 L Sodium (135-145) mmol/L Potassium (3.5-5.3) mmol/L Chloride (100-110) mmol/L Carbon Dioxide (21-32) mmol/L BUN (7-18) mg/dL Creatinine (0.55-1.02) mg/dL Est Cr Clr Drug Dosing Estimated GFR (MDRD) (>60) BUN/Creatinine Ratio (9-20) Glucose (80-116) mg/dL POC Glucose 399 H D (80-116) mg/dL Lactic Acid (0.4-2.2) mmol/L Calcium (8.6-10.2) mg/dL Magnesium (1.8-2.5) mg/dL Total Bilirubin (0.1-1.3) mg/dL Direct Bilirubin (0.10-0.20) mg/dL AST (5-25) IU/L ALT (12-36) U/L Alkaline Phosphatase (56-112) IU/L Total Protein (6.0-8.0) g/dL Albumin (3.5-5.2) g/dL Amylase (25-115) U/L TSH, Ultra Sensitive 2.42 (0.36-3.74) IU/mL Urine Color (YELLOW) Urine Appearance (CLEAR) Urine pH (5.0-6.5) Ur Specific Nimitz (1.010-1.025) Urine Protein (NEGATIVE) mg/dL Urine Glucose (UA) (NORMAL) mg/dL Urine Ketones (NEGATIVE) mg/dL Urine Occult Blood (NEGATIVE) Urine Nitrite (NEGATIVE) Urine Bilirubin (NEGATIVE) Urine Urobilinogen (NEGATIVE) mg/dL Ur Leukocyte Esterase (NEGATIVE) Urine RBC (0-5) Urine WBC (0-5) Ur Squamous Epith Cells (NS,R,O) Urine Bacteria (NS) Urine Opiates Screen (NEGATIVE) Ur Oxycodone Screen (NEGATIVE) Ur Propoxyphene Screen (NEGATIVE) Ur Barbituates Screen (NEGATIVE) Ur Tricyclics Screen (NEGATIVE) Ur Phencyclidine Scrn (NEGATIVE) Ur Amphetamine Screen (NEGATIVE) Urine MDMA Screen (NEGATIVE) U Benzodiazepines Scrn (NEGATIVE) U Cocaine Metab Screen (NEGATIVE) U Marijuana (THC) Screen (NEGATIVE) Ethyl Alcohol < 0.03 (<0.03) % 02/09/19 02/09/19 02/09/19 Range/Units 02:01 02:01 02:30 WBC (4.5-12.0) X10-3/uL RBC (3.23-5.20) x10(6)uL Hgb (11.5-15.5) g/dL Hct (30.0-51.3) % MCV (80-96) fL MCH (27.7-33.6) pg MCHC (32.2-35.4) g/dL RDW (11.5-15.5) % Plt Count (125-369) X10(3)uL MPV (7.4-10.4) fL Neut % (Auto) (46-82) % Lymph % (Auto) (13-37) % Carbon % (Auto) (4-12) % Eos % (Auto) (1.0-5.0) % Baso % (Auto) (0-2) % Neut # (Auto) (1.6-8.3) # Lymph # (Auto) (0.6-5.0) # Carbon # (Auto) (0.0-1.3) # Eos # (Auto) (0.0-0.8) # Baso # (Auto) (0.0-0.2) # ABG pH (7.35-7.45) ABG pCO2 (35-45) mmHg ABG pO2 (83-108) mmHg ABG HCO3 (22-26) mmol/L ABG O2 Saturation (96-97) % ABG Base Excess (-2-2) Sher Test O2 Delivery Device Oxygen Flow Rate L Sodium (135-145) mmol/L Potassium (3.5-5.3) mmol/L Chloride (100-110) mmol/L Carbon Dioxide (21-32) mmol/L BUN (7-18) mg/dL Creatinine (0.55-1.02) mg/dL Est Cr Clr Drug Dosing Estimated GFR (MDRD) (>60) BUN/Creatinine Ratio (9-20) Glucose (80-116) mg/dL POC Glucose 322 H (80-116) mg/dL Lactic Acid (0.4-2.2) mmol/L Calcium (8.6-10.2) mg/dL Magnesium (1.8-2.5) mg/dL Total Bilirubin (0.1-1.3) mg/dL Direct Bilirubin (0.10-0.20) mg/dL AST (5-25) IU/L ALT (12-36) U/L Alkaline Phosphatase (56-112) IU/L Total Protein (6.0-8.0) g/dL Albumin (3.5-5.2) g/dL Amylase (25-115) U/L TSH, Ultra Sensitive (0.36-3.74) IU/mL Urine Color Yellow (YELLOW) Urine Appearance Slightly cloudy (CLEAR) Urine pH 5.0 (5.0-6.5) Ur Specific Nimitz 1.020 (1.010-1.025) Urine Protein Negative (NEGATIVE) mg/dL Urine Glucose (UA) >1000 H (NORMAL) mg/dL Urine Ketones 150 H (NEGATIVE) mg/dL Urine Occult Blood Negative (NEGATIVE) Urine Nitrite Negative (NEGATIVE) Urine Bilirubin Negative (NEGATIVE) Urine Urobilinogen Normal (NEGATIVE) mg/dL Ur Leukocyte Esterase Trace (NEGATIVE) Urine RBC 0-5 (0-5) Urine WBC 5-10 H (0-5) Ur Squamous Epith Cells Few H (NS,R,O) Urine Bacteria Many H (NS) Urine Opiates Screen Negative (NEGATIVE) Ur Oxycodone Screen Negative (NEGATIVE) Ur Propoxyphene Screen Negative (NEGATIVE) Ur Barbituates Screen Negative (NEGATIVE) Ur Tricyclics Screen Negative (NEGATIVE) Ur Phencyclidine Scrn Negative (NEGATIVE) Ur Amphetamine Screen Negative (NEGATIVE) Urine MDMA Screen Negative (NEGATIVE) U Benzodiazepines Scrn Positive H (NEGATIVE) U Cocaine Metab Screen Negative (NEGATIVE) U Marijuana (THC) Screen Negative (NEGATIVE) Ethyl Alcohol (<0.03) % 02/09/19 Range/Units 06:28 WBC (4.5-12.0) X10-3/uL RBC (3.23-5.20) x10(6)uL Hgb (11.5-15.5) g/dL Hct (30.0-51.3) % MCV (80-96) fL MCH (27.7-33.6) pg MCHC (32.2-35.4) g/dL RDW (11.5-15.5) % Plt Count (125-369) X10(3)uL MPV (7.4-10.4) fL Neut % (Auto) (46-82) % Lymph % (Auto) (13-37) % Carbon % (Auto) (4-12) % Eos % (Auto) (1.0-5.0) % Baso % (Auto) (0-2) % Neut # (Auto) (1.6-8.3) # Lymph # (Auto) (0.6-5.0) # Carbon # (Auto) (0.0-1.3) # Eos # (Auto) (0.0-0.8) # Baso # (Auto) (0.0-0.2) # ABG pH (7.35-7.45) ABG pCO2 (35-45) mmHg ABG pO2 (83-108) mmHg ABG HCO3 (22-26) mmol/L ABG O2 Saturation (96-97) % ABG Base Excess (-2-2) Sher Test O2 Delivery Device Oxygen Flow Rate L Sodium 136 (135-145) mmol/L Potassium 3.2 L (3.5-5.3) mmol/L Chloride 100 D (100-110) mmol/L Carbon Dioxide 26 (21-32) mmol/L BUN 12 (7-18) mg/dL Creatinine 0.8 (0.55-1.02) mg/dL Est Cr Clr Drug Dosing 85.92 Estimated GFR (MDRD) > 60 (>60) BUN/Creatinine Ratio 15.0 (9-20) Glucose 196 H D (80-116) mg/dL POC Glucose (80-116) mg/dL Lactic Acid (0.4-2.2) mmol/L Calcium 8.1 L (8.6-10.2) mg/dL Magnesium (1.8-2.5) mg/dL Total Bilirubin (0.1-1.3) mg/dL Direct Bilirubin (0.10-0.20) mg/dL AST (5-25) IU/L ALT (12-36) U/L Alkaline Phosphatase (56-112) IU/L Total Protein (6.0-8.0) g/dL Albumin (3.5-5.2) g/dL Amylase (25-115) U/L TSH, Ultra Sensitive (0.36-3.74) IU/mL Urine Color (YELLOW) Urine Appearance (CLEAR) Urine pH (5.0-6.5) Ur Specific Nimitz (1.010-1.025) Urine Protein (NEGATIVE) mg/dL Urine Glucose (UA) (NORMAL) mg/dL Urine Ketones (NEGATIVE) mg/dL Urine Occult Blood (NEGATIVE) Urine Nitrite (NEGATIVE) Urine Bilirubin (NEGATIVE) Urine Urobilinogen (NEGATIVE) mg/dL Ur Leukocyte Esterase (NEGATIVE) Urine RBC (0-5) Urine WBC (0-5) Ur Squamous Epith Cells (NS,R,O) Urine Bacteria (NS) Urine Opiates Screen (NEGATIVE) Ur Oxycodone Screen (NEGATIVE) Ur Propoxyphene Screen (NEGATIVE) Ur Barbituates Screen (NEGATIVE) Ur Tricyclics Screen (NEGATIVE) Ur Phencyclidine Scrn (NEGATIVE) Ur Amphetamine Screen (NEGATIVE) Urine MDMA Screen (NEGATIVE) U Benzodiazepines Scrn (NEGATIVE) U Cocaine Metab Screen (NEGATIVE) U Marijuana (THC) Screen (NEGATIVE) Ethyl Alcohol (<0.03) % Result Diagrams: 02/08/19 22:48 02/09/19 06:28 EKG INTERPRETATION Rhythm: NSR - Problem List (1) Type 1 diabetes mellitus SNOMED Code(s): 97548371 ICD Code: E10.9 - TYPE 1 DIABETES MELLITUS WITHOUT COMPLICATIONS Status: Acute Current Visit: Yes Qualifiers: Diabetes mellitus complication status: with ketoacidosis (2) Bipolar disorder SNOMED Code(s): 69752068 ICD Code: F31.9 - BIPOLAR DISORDER, UNSPECIFIED Status: Acute Current Visit: Yes Qualifiers: Active/Remission status: currently active (3) DKA (diabetic ketoacidoses) SNOMED Code(s): 647697405, 244124488 ICD Code: E11.10 - TYPE 2 DIABETES MELLITUS WITH KETOACIDOSIS WITHOUT COMA Status: Acute Current Visit: Yes Qualifiers: Diabetes mellitus type: type 1 (4) Frequent falls SNOMED Code(s): 267346328 ICD Code: R29.6 - REPEATED FALLS Status: Acute Current Visit: No (5) Asymptomatic bacteriuria SNOMED Code(s): 027880488 ICD Code: R82.71 - BACTERIURIA Status: Acute Current Visit: Yes (6) Tobacco abuse SNOMED Code(s): 562399100 ICD Code: Z72.0 - TOBACCO USE Status: Acute Current Visit: Yes Problem List Initiated/Reviewed/Updated: Yes Orders Last 24hrs: Active Orders 24 hr Category Date Time Status Admission Status [Patient Status] [ADT] Routine ADT 02/09/19 02:03 Active Patient Status [ADT] Routine ADT 02/09/19 00:27 Active Cardiac Monitoring [RC] CONTINUOUS Care 02/09/19 00:30 Active Insert Cui Catheter [Insert Urinary Catheter] [OM.PC] Care 02/09/19 02:00 Ordered Q24H Oxygen Therapy [RC] PRN Care 02/09/19 00:27 Active Pulse Oximetry [RC] CONTINUOUS Care 02/09/19 00:30 Active RT Aerosol Therapy [RC] ASDIRECTED Care 02/09/19 00:31 Active Up With Assistance [RC] ASDIRECTED Care 02/09/19 00:27 Active Urinary Catheter Assessment [RC] QSHIFT Care 02/09/19 04:14 Active VTE/DVT Education [RC] Per Unit Routine Care 02/09/19 00:27 Active Vital Signs [RC] 08,12,16,20,00,04 Care 02/09/19 00:27 Active Clear Liquid Diet [DIET] Diet 02/09/19 Breakfast Active Chest 1V Frontal [CR] Stat Exams 02/08/19 22:24 Taken CULTURE URINE [RM] Routine Lab 02/09/19 02:01 Received Albuterol/Ipratropium [DuoNeb 3.0-0.5 MG/3 ML] Med 02/09/19 00:27 Active 3 ml INH ONETIME PRN Insulin Lispro [HumaLOG] Med 02/09/19 08:00 Active See Protocol SUBCUT TIDMEALS Ondansetron [Zofran] Med 02/09/19 00:27 Active 4 mg IV Q4H PRN Sodium Chloride 0.9% [Normal Saline] 1,000 ml Med 02/08/19 22:45 Active IV ASDIRECTED Sodium Chloride 0.9% [Normal Saline] 1,000 ml Med 02/09/19 00:00 Active IV ASDIRECTED Sodium Chloride 0.9% [Saline Flush] Med 02/09/19 02:43 Active 10 ml FLUSH ASDIRECTED PRN Resuscitation Status Routine Resus Stat 02/09/19 00:27 Ordered Medication Orders Albuterol/Ipratropium (Duoneb 3.0-0.5 Mg/3 Ml) 3 ml INH ONETIME PRN PRN Reason: Shortness Of Breath/wheezing Sodium Chloride (Normal Saline) 1,000 mls @ 999 mls/hr IV ASDIRECTED [facility] Last Admin: 02/08/19 22:50 Dose: 999 mls/hr Sodium Chloride (Normal Saline) 1,000 mls @ 125 mls/hr IV ASDIRECTED [facility] Last Admin: 02/09/19 07:44 Dose: 125 mls/hr Infusion: 02/09/19 07:44 Dose: 125 mls/hr Admin: 02/09/19 01:30 Dose: 125 mls/hr Insulin Human Lispro (Humalog) 0 unit SUBCUT TIDMEALS [facility]; Protocol Last Admin: 02/09/19 08:05 Dose: 2 units Ondansetron HCl (Zofran) 4 mg IV Q4H PRN PRN Reason: Nausea/Vomiting Sodium Chloride (Saline Flush) 10 ml FLUSH ASDIRECTED PRN PRN Reason: flush Last Admin: 02/09/19 02:32 Dose: 10 ml Assessment/Plan Comment:: Patient is more alert,sugars are better. Currently fees tired. Avise to diet, ambulation,and may go home today if strong enough and keeping food down.
--- NOTE | 2019-02-09 11:01 | CR ---
INDICATION: Shortness of breath. CHEST: An AP upright portable view of the chest 02/08/19 was compared with and again revealed the heart to be enlarged. Overlying EKG leads are noted. Pulmonary vasculature is slightly prominent and somewhat indistinct, suggesting the possibility of a mild degree of pulmonary vascular congestion. No definite active infiltrate or effusion was seen. However, there is some interstitial change, which may represent minimal interstitial lung edema and/or fibrosis and should be correlated clinically. No consolidating pneumonia or effusion was seen. IMPRESSION: Findings suggest ASHD with mild or early CHF and minimal interstitial lung edema - full inspiration PA and lateral views of the chest may be helpful for further evaluation. MTDD
[2019-02-09] MEDS: NS + KCl 20mEq/L 1,000 ML IV SCH ×2 (12:57→23:03)
[2019-02-09] MEDS ORDERED: Acetaminophen 325 MG Tab PO PRN (14:09)
[2019-02-09] MEDS ORDERED: hydrOXYzine HCl 25 MG Tab PO PRN (14:10)
[2019-02-09] MEDS ORDERED: Insulin Glargine,Human Rec. Analog 100 Units/ML 3 ML Pen SUBCUT SCH (21:00)
[2019-02-09] MEDS ORDERED: QUEtiapine 100 MG Tab PO SCH (21:00)
[2019-02-09] MEDS ORDERED: DULoxetine 60 MG Cap PO SCH (21:00)
[2019-02-09] MEDS ORDERED: LORazepam 1 MG Tab PO SCH (21:00)
[2019-02-09] MEDS: Benztropine 1 MG Tab PO SCH (21:18)
[2019-02-09] MEDS: Haloperidol 5 MG Tab PO SCH (21:19)
[2019-02-09] MEDS: Ibuprofen 800 MG Tab PO SCH (21:22)
[2019-02-10] MEDS: Insulin Lispro 100 Unit/ML 3 ML KwikPen SUBCUT SCH (08:18)
[2019-02-10] MEDS: Haloperidol 5 MG Tab PO SCH (08:24)
[2019-02-10] MEDS: Benztropine 1 MG Tab PO SCH (08:24)
[2019-02-10] MEDS: Ibuprofen 800 MG Tab PO SCH (08:24)
--- NOTE | 2019-02-10 08:49 | PCM.PN ---
- General Info Date of Service: 02/10/19 Subjective Update: Meliton had episodes of wheezing and shortness of breath overnight. This was due to IV fluids which were discontinued. A pain in the left lower quadrant has improved sugars stable and electrolytes have normalized. She will like to go home today she was able to eat a breakfast and she is able to ambulate with a walker - Review of Systems Gastrointestinal: Reports: No Symptoms Genitourinary: Reports: No Symptoms Musculoskeletal: Reports: No Symptoms - Patient Data Vitals - Most Recent: Last Vital Signs Temp 97.5 F 02/10/19 04:00 Pulse 96 02/10/19 04:00 Resp 20 02/10/19 04:00 BP 110/74 02/10/19 04:00 Pulse Ox 93 L 02/10/19 04:00 Weight - Most Recent: 99.564 kg I&O - Last 24 Hours: Intake & Output 02/09/19 02/10/19 02/10/19 22:59 06:59 14:59 Intake Total 730 371 Balance 730 371 Lab Results Last 24 Hours: Laboratory Results - last 24 hr 02/09/19 02/09/19 02/09/19 Range/Units 03:34 04:25 11:47 WBC (4.5-12.0) X10-3/uL RBC (3.23-5.20) x10(6)uL Hgb (11.5-15.5) g/dL Hct (30.0-51.3) % MCV (80-96) fL MCH (27.7-33.6) pg MCHC (32.2-35.4) g/dL RDW (11.5-15.5) % Plt Count (125-369) X10(3)uL MPV (7.4-10.4) fL Neut % (Auto) (46-82) % Lymph % (Auto) (13-37) % Izard % (Auto) (4-12) % Eos % (Auto) (1.0-5.0) % Baso % (Auto) (0-2) % Neut # (Auto) (1.6-8.3) # Lymph # (Auto) (0.6-5.0) # Izard # (Auto) (0.0-1.3) # Eos # (Auto) (0.0-0.8) # Baso # (Auto) (0.0-0.2) # Sodium (135-145) mmol/L Potassium (3.5-5.3) mmol/L Chloride (100-110) mmol/L Carbon Dioxide (21-32) mmol/L BUN (7-18) mg/dL Creatinine (0.55-1.02) mg/dL Est Cr Clr Drug Dosing mL/min Estimated GFR (MDRD) (>60) BUN/Creatinine Ratio (9-20) Glucose (80-116) mg/dL POC Glucose 248 H 173 H 331 H D (80-116) mg/dL Calcium (8.6-10.2) mg/dL 02/09/19 02/09/19 02/10/19 Range/Units 16:48 21:15 01:48 WBC (4.5-12.0) X10-3/uL RBC (3.23-5.20) x10(6)uL Hgb (11.5-15.5) g/dL Hct (30.0-51.3) % MCV (80-96) fL MCH (27.7-33.6) pg MCHC (32.2-35.4) g/dL RDW (11.5-15.5) % Plt Count (125-369) X10(3)uL MPV (7.4-10.4) fL Neut % (Auto) (46-82) % Lymph % (Auto) (13-37) % Izard % (Auto) (4-12) % Eos % (Auto) (1.0-5.0) % Baso % (Auto) (0-2) % Neut # (Auto) (1.6-8.3) # Lymph # (Auto) (0.6-5.0) # Izard # (Auto) (0.0-1.3) # Eos # (Auto) (0.0-0.8) # Baso # (Auto) (0.0-0.2) # Sodium (135-145) mmol/L Potassium (3.5-5.3) mmol/L Chloride (100-110) mmol/L Carbon Dioxide (21-32) mmol/L BUN (7-18) mg/dL Creatinine (0.55-1.02) mg/dL Est Cr Clr Drug Dosing mL/min Estimated GFR (MDRD) (>60) BUN/Creatinine Ratio (9-20) Glucose (80-116) mg/dL POC Glucose 271 H 323 H 280 H (80-116) mg/dL Calcium (8.6-10.2) mg/dL 02/10/19 02/10/19 Range/Units 06:00 06:00 WBC 5.8 (4.5-12.0) X10-3/uL RBC 4.82 (3.23-5.20) x10(6)uL Hgb 15.0 (11.5-15.5) g/dL Hct 44.3 (30.0-51.3) % MCV 91.8 (80-96) fL MCH 31.2 (27.7-33.6) pg MCHC 34.0 (32.2-35.4) g/dL RDW 14.3 (11.5-15.5) % Plt Count 319 (125-369) X10(3)uL MPV 8.2 (7.4-10.4) fL Neut % (Auto) 50.2 (46-82) % Lymph % (Auto) 35.5 (13-37) % Izard % (Auto) 9.3 (4-12) % Eos % (Auto) 4 (1.0-5.0) % Baso % (Auto) 1 (0-2) % Neut # (Auto) 2.9 (1.6-8.3) # Lymph # (Auto) 2.1 (0.6-5.0) # Izard # (Auto) 0.5 (0.0-1.3) # Eos # (Auto) 0.2 (0.0-0.8) # Baso # (Auto) 0.1 (0.0-0.2) # Sodium 137 (135-145) mmol/L Potassium 3.5 (3.5-5.3) mmol/L Chloride 103 (100-110) mmol/L Carbon Dioxide 27 (21-32) mmol/L BUN 8 (7-18) mg/dL Creatinine 0.7 (0.55-1.02) mg/dL Est Cr Clr Drug Dosing 98.20 mL/min Estimated GFR (MDRD) > 60 (>60) BUN/Creatinine Ratio 11.4 (9-20) Glucose 246 H (80-116) mg/dL POC Glucose (80-116) mg/dL Calcium 8.3 L (8.6-10.2) mg/dL Jluis Results Last 24 Hours: Microbiology 02/09/19 02:01 Urine Culture - Preliminary Urine, Clean Catch Gram Negative Rods Gram Positive Cocci Med Orders - Current: Current Medications Acetaminophen (Tylenol) 650 mg PO Q4H PRN PRN Reason: Pain Albuterol/Ipratropium (Duoneb 3.0-0.5 Mg/3 Ml) 3 ml INH ONETIME PRN PRN Reason: Shortness Of Breath/wheezing Benztropine Mesylate (Cogentin) 1 mg PO BID [facility] Last Admin: 02/10/19 08:24 Dose: 1 mg Duloxetine HCl (Cymbalta) 60 mg PO BEDTIME [facility] Last Admin: 02/09/19 21:19 Dose: 60 mg Haloperidol (Haldol) 2.5 mg PO BID [facility] Last Admin: 02/10/19 08:24 Dose: 2.5 mg Hydroxyzine HCl (Atarax) 25 mg PO BID PRN PRN Reason: Anxiety Ibuprofen (Motrin) 800 mg PO TID [facility] Last Admin: 02/10/19 08:24 Dose: 800 mg Insulin Glargine (Lantus Solostar) 30 units SUBCUT BEDTIME [facility] Last Admin: 02/09/19 21:20 Dose: 30 units Insulin Human Lispro (Humalog) 0 unit SUBCUT TIDMEALS [facility]; Protocol Last Admin: 02/10/19 08:18 Dose: 4 units Lorazepam (Ativan) 1 mg PO BEDTIME [facility] Last Admin: 02/09/19 21:17 Dose: 1 mg Quetiapine Fumarate (Seroquel) 800 mg PO BEDTIME [facility] Last Admin: 02/09/19 21:24 Dose: 800 mg Sodium Chloride (Saline Flush) 10 ml FLUSH ASDIRECTED PRN PRN Reason: flush Last Admin: 02/09/19 02:32 Dose: 10 ml Discontinued Medications Albuterol/Ipratropium (Duoneb 3.0-0.5 Mg/3 Ml) 3 ml NEB ONETIME ONE Stop: 02/08/19 22:25 Last Admin: 02/08/19 22:49 Dose: 3 ml Sodium Chloride (Normal Saline) 1,000 mls @ 999 mls/hr IV ASDIRECTED [facility] Last Admin: 02/08/19 22:50 Dose: 999 mls/hr Sodium Chloride (Normal Saline) 1,000 mls @ 125 mls/hr IV ASDIRECTED [facility] Last Admin: 02/09/19 07:44 Dose: 125 mls/hr Insulin Human Regular 100 unit (/ Sodium Chloride) 100 mls @ 9.95 mls/hr IV TITRATE [facility]; Protocol Last Admin: 02/09/19 01:44 Dose: 0.1 units/kg/hr, 11.36 mls/hr Potassium Chloride/Sodium Chloride (Normal Saline With 20 Meq Kcl) 1,000 mls @ 100 mls/hr IV Q10H [facility] Last Admin: 02/09/19 23:03 Dose: 100 mls/hr Insulin Human Regular (Humulin R) 10 unit IV ONETIME ONE Stop: 02/08/19 22:42 Last Admin: 02/08/19 22:49 Dose: 10 units Insulin Human Regular (Humulin R) 7 unit IV ONETIME ONE Stop: 02/09/19 00:00 Last Admin: 02/09/19 00:03 Dose: 7 unit Levofloxacin (Levaquin) 500 mg PO ONETIME ONE Stop: 02/09/19 02:29 Last Admin: 02/09/19 02:41 Dose: 500 mg Ondansetron HCl (Zofran) 4 mg IV Q4H PRN PRN Reason: Nausea/Vomiting Sodium Bicarbonate (Sodium Bicarbonate 4.2%) 5 meq IVPUSH ONETIME STA Stop: 02/09/19 02:01 Last Admin: 02/09/19 02:42 Dose: Not Given Sodium Bicarbonate (Sodium Bicarbonate 8.4%) 50 meq IVPUSH ONETIME ONE Stop: 02/09/19 02:27 Last Admin: 02/09/19 02:31 Dose: 50 meq - Exam General: Alert, Oriented, Other Neck: Supple Lungs: Clear to Auscultation Cardiovascular: Regular Rate - Problem List & Annotations (1) Type 1 diabetes mellitus SNOMED Code(s): 37552393 Code(s): E10.9 - TYPE 1 DIABETES MELLITUS WITHOUT COMPLICATIONS Status: Acute Current Visit: Yes Qualifiers: Diabetes mellitus complication status: with ketoacidosis (2) Bipolar disorder SNOMED Code(s): 40189569 Code(s): F31.9 - BIPOLAR DISORDER, UNSPECIFIED Status: Acute Current Visit: Yes Qualifiers: Active/Remission status: currently active (3) DKA (diabetic ketoacidoses) SNOMED Code(s): 377848651, 453123024 Code(s): E11.10 - TYPE 2 DIABETES MELLITUS WITH KETOACIDOSIS WITHOUT COMA Status: Acute Current Visit: Yes Qualifiers: Diabetes mellitus type: type 1 (4) Frequent falls SNOMED Code(s): 123802662 Code(s): R29.6 - REPEATED FALLS Status: Acute Current Visit: No (5) Asymptomatic bacteriuria SNOMED Code(s): 302922541 Code(s): R82.71 - BACTERIURIA Status: Acute Current Visit: Yes (6) Tobacco abuse SNOMED Code(s): 351080375 Code(s): Z72.0 - TOBACCO USE Status: Acute Current Visit: Yes - Problem List Review Problem List Initiated/Reviewed/Updated: Yes - My Orders Last 24 Hours: My Active Orders 02/09/19 09:04 EKG Documentation Completion [RC] ASDIRECTED EKG 12 Lead [EK] Routine 02/09/19 14:09 Acetaminophen [Tylenol] 650 mg PO Q4H PRN 02/09/19 14:10 hydrOXYzine HCl [Atarax] 25 mg PO BID PRN 02/09/19 21:00 Benztropine [Cogentin] 1 mg PO BID DULoxetine [Cymbalta] 60 mg PO BEDTIME Haloperidol [Haldol] 2.5 mg PO BID Ibuprofen [Motrin] 800 mg PO TID Insulin Glarg,Human.Rec.Analog [LantUS Solostar] 30 units SUBCUT BEDTIME LORazepam [Ativan] 1 mg PO BEDTIME QUEtiapine [SEROquel] 800 mg PO BEDTIME 02/09/19 Lunch Consistent Carbohydrate Diet [DIET] - Plan Plan:: Patient is more alert,sugars are better.She is ready to go homeeand may go home with HH to help with Meds,PT
[2019-02-10 09:40] VITALS: BP 109/63
== END 2019-02-10 10:30 | disposition home or self-care (01) ==
LOC: FB.ED 22:19 → UNDOADMOB 02-09 00:29 → FB.ICU 02-09 00:29 → OBSVTOIN 02-09 00:29 → INTOOBSV 02-09 00:29 → FB.MS 02-09 00:32 → FB.ICU 02-09 01:05 → FB.MS 02-09 13:00 → UNDODISIN 02-10 10:30
PROVIDERS: ADMIT Family Medicine; ATTEND Family Medicine
DX: E10.10 Type 1 diabetes mellitus with ketoacidosis without coma (principal); E10.21 Type 1 diabetes mellitus with diabetic nephropathy; E10.40 Type 1 diabetes mellitus with diabetic neuropathy, unspecified; F41.9 Anxiety disorder, unspecified; F31.9 Bipolar disorder, unspecified; F17.200 Nicotine dependence, unspecified, uncomplicated; J45.909 Unspecified asthma, uncomplicated; R29.6 Repeated falls; R82.71 Bacteriuria; Z88.2 Allergy status to sulfonamides; Z88.8 Allergy status to other drugs, medicaments and biological substances; Z88.0 Allergy status to penicillin; Z88.1 Allergy status to other antibiotic agents; Z91.018 Allergy to other foods; Z91.030 Bee allergy status; Z79.899 Other long term (current) drug therapy
CPT/HCPCS: 36415; 36600; 51702; 71045; 80048; 80076; 80305-QW; 81001; 82150; 82803; 82962; 83605; 83735; 84443; 85025; 87086; 87088; 87186; 96361; 96374; 96376; 99285-25; A9270-GY; G0378; G0480; J1815; J1815-GY; J3480; J7030; J7620-GY

== ENCOUNTER 2019-02-25 20:58 | Inpatient (IN) | payer MEDICAID ==
[2019-02-25] MEDS ORDERED: Sodium Chloride 0.9% 10 ML Syringe FLUSH PRN (21:01)
[2019-02-25] MEDS ORDERED: Sodium Chloride 0.9% 1,000 ML IV SCH (21:15)
--- NOTE | 2019-02-25 22:04 | EDM.PDOC ---
ED HPI GENERAL MEDICAL PROBLEM - General Chief Complaint: Diabetic Complaint Stated Complaint: HYPER GLYSEMIA PER NURSE Time Seen by Provider: 02/25/19 21:30 Source of Information: Reports: Patient, EMS History Limitations: Reports: No Limitations - History of Present Illness INITIAL COMMENTS - FREE TEXT/NARRATIVE: 53-year-old female was brought in because of hyperglycemia. She was very weak, and called the ambulance earlier today declined transportation of the time but then a few hours later called back sugars more than 600,unable to control them.. She is known to be a brittle diabetic,poorly controlled type I. She has no complaints but has not been eating well for the last 2 days .In addition she' s being treated for a urinary tract infection. 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 - Related Data Allergies Allergy/AdvReac Type Severity Reaction Status Date / Time olanzapine [From Zyprexa] Allergy Unknown Swelling Verified 02/25/19 21:07 Penicillins Allergy Unknown Anaphylactic Verified 02/25/19 21:07 Shock Sulfa (Sulfonamide Allergy Unknown Chills Verified 02/25/19 21:07 Antibiotics) clindamycin Allergy Nausea Verified 02/25/19 21:07 raw tomatoes Allergy Unknown Rash Uncoded 04/26/18 20:31 Bees Allergy Swelling Uncoded 04/26/18 20:31 Home Meds: Home Meds DULoxetine [Cymbalta] 60 mg PO BEDTIME 02/16/17 [History] LORazepam 1 mg PO BEDTIME 02/16/17 [History] QUEtiapine [SEROquel] 800 mg PO BEDTIME 02/16/17 [History] traZODone 150 mg PO BEDTIME 02/16/17 [History] hydrOXYzine HCl [hydrOXYzine] 25 mg PO BID PRN 03/17/17 [History] Ibuprofen 800 mg PO TID 03/08/18 [History] Benztropine [Cogentin] 1 mg PO BID 01/01/19 [History] Haloperidol [Haldol] 2.5 mg PO BID 02/09/19 [History] Insulin Aspart [NovoLOG] 20 unit SUBCUT TIDMEALS 02/09/19 [History] Insulin Glargine,Hum.Rec.Anlog [Basaglar Kwikpen U-100] 30 units SUBCUT BEDTIME 02/09/19 [History] LORazepam 0.5 mg PO BEDTIME 02/09/19 [History] Past Medical History HEENT History: Reports: Impaired Vision Respiratory History: Reports: Asthma, Intubation, Previous, Pneumonia, Recurrent Other Respiratory History: chronic smoker. 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 Psychiatric History: Reports: Anxiety, Bipolar, Depression, Hallucinations, Psych Hospitalization(s), PTSD, Schizophrenia, Suicide Attempt Endocrine/Metabolic History: Reports: Diabetes, Type I, Obesity/BMI 30+ Dermatologic History: Reports: Cellulitis - Infectious Disease History Infectious Disease History: Reports: Chicken Pox - Past Surgical History HEENT Surgical History: Reports: Oral Surgery Respiratory Surgical History: Reports: None GI Surgical History: Reports: Appendectomy, Cholecystectomy, Hernia, Abdominal Female Surgical History: Reports: Hysterectomy Musculoskeletal Surgical History: Reports: Arthroscopic Knee, Arthroscopic Procedure Social & Family History - Family History Family Medical History: Unobtainable Other HEENT Family History: PT IS ADOPTED. DOES NOT KNOW HX - Tobacco Use Smoking Status *Q: Current Every Day Smoker Years of Tobacco use: 40 Packs/Tins Daily: 2 - Caffeine Use Caffeine Use: Reports: Soda Other Caffeine Use: 6 pack a day - Recreational Drug Use Recreational Drug Use: No ED ROS GENERAL - Review of Systems Review Of Systems: ROS reveals no pertinent complaints other than HPI. ED EXAM GENERAL NO PERIP PULSE - Physical Exam Exam: See Below Exam Limited By: No Limitations General Appearance: Alert, Lethargic Ears: Normal External Exam Nose: Normal Inspection Throat/Mouth: Normal Inspection Head: Atraumatic Neck: Normal Inspection Respiratory/Chest: No Respiratory Distress, Lungs Clear Cardiovascular: Normal Peripheral Pulses, Regular Rate, Rhythm GI/Abdominal: Normal Bowel Sounds (Female) Exam: Deferred Rectal (Female) Exam: Deferred Neurological: Alert, Oriented Psychiatric: Normal Affect Skin Exam: Warm, Cool, Diaphoretic Course - Vital Signs Last Recorded V/S: Last Vital Signs Temp 98.0 F 02/25/19 21:05 Pulse 117 H 02/25/19 21:05 Resp 20 02/25/19 21:05 BP 91/43 L 02/25/19 21:05 Pulse Ox 85 L 02/25/19 21:35 - Orders/Labs/Meds Orders: Active Orders 24 hr Category Date Time Status Blood Glucose Check, Bedside [RC] ONETIME Care 02/25/19 21:28 Active EKG Documentation Completion [RC] ASDIRECTED Care 02/25/19 21:51 Active Oxygen Therapy Adult [Oxygen Therapy, ED] [RC] Care 02/25/19 21:35 Active ASDIRECTED Chest 1V Frontal [CR] Stat Exams 02/25/19 21:50 Ordered PRO B-TYPE NATRIUR PEPT,BNPPRO [CHEM] Stat Lab 02/25/19 21:16 Received UA W/MICROSCOPIC [URIN] Stat Lab 02/25/19 21:01 Ordered Insulin Regular, Human [HumuLIN R] 100 unit Med 02/25/19 21:15 Active Sodium Chloride 0.9% [Normal Saline] 99 ml IV TITRATE Sodium Chloride 0.9% [Normal Saline] 1,000 ml Med 02/25/19 21:15 Active IV ASDIRECTED Sodium Chloride 0.9% [Saline Flush] Med 02/25/19 21:01 Active 10 ml FLUSH ASDIRECTED PRN Peripheral IV Insertion Adult [OM.PC] Routine Oth 02/25/19 21:00 Ordered EKG 12 Lead [EK] Routine Ther 02/25/19 21:50 Ordered Medication Orders Insulin Human Regular 100 unit (/ Sodium Chloride) 100 mls @ 10.97 mls/hr IV TITRATE [facility]; Protocol Last Admin: 02/25/19 21:16 Dose: 0.1 units/kg/hr, 10.97 mls/hr Sodium Chloride (Normal Saline) 1,000 mls @ 150 mls/hr IV ASDIRECTED HINA Last Infusion: 02/25/19 21:41 Dose: 999 mls/hr Admin: 02/25/19 21:16 Dose: 150 mls/hr Sodium Chloride (Saline Flush) 10 ml FLUSH ASDIRECTED PRN PRN Reason: Keep Vein Open Last Admin: 02/25/19 21:15 Dose: 10 ml Labs: Laboratory Tests 05/22/19 05/22/19 05/22/19 Range/Units 21:16 21:16 21:16 WBC 8.8 (4.5-12.0) X10-3/uL RBC 5.10 (3.23-5.20) x10(6)uL Hgb 16.6 H (11.5-15.5) g/dL Hct 46.8 (30.0-51.3) % MCV 91.8 (80-96) fL MCH 32.5 (27.7-33.6) pg MCHC 35.4 (32.2-35.4) g/dL RDW 13.7 (11.5-15.5) % Plt Count 395 H (125-369) X10(3)uL MPV 7.9 (7.4-10.4) fL Neut % (Auto) 68.0 (46-82) % Lymph % (Auto) 24.1 (13-37) % Lewis % (Auto) 4.8 (4-12) % Eos % (Auto) 2 (1.0-5.0) % Baso % (Auto) 1 (0-2) % Neut # (Auto) 6.0 (1.6-8.3) # Lymph # (Auto) 2.1 (0.6-5.0) # Lewis # (Auto) 0.4 (0.0-1.3) # Eos # (Auto) 0.2 (0.0-0.8) # Baso # (Auto) 0.1 (0.0-0.2) # POC VBG pH (7.31-7.41) POC VBG pCO2 (41-51) mmHG POC VBG HCO3 (23-28) mmol/L POC VBG Total CO2 (24-29) mmol/L POC VBG Base Excess (-2-3) mmol/L Sodium 126 L D (135-145) mmol/L Potassium 3.9 (3.5-5.3) mmol/L Chloride 89 L* D (100-110) mmol/L Carbon Dioxide 26 (21-32) mmol/L BUN 11 (7-18) mg/dL Creatinine 1.0 (0.55-1.02) mg/dL Est Cr Clr Drug Dosing 68.74 mL/min Estimated GFR (MDRD) 58 L (>60) BUN/Creatinine Ratio 11.0 (9-20) Glucose 573 H* D (80-116) mg/dL Calcium 8.7 (8.6-10.2) mg/dL Troponin I < 0.017 L (<0.017-0.056) ng/mL 02/25/ Range/Units 21:22 WBC (4.5-12.0) X10-3/uL RBC (3.23-5.20) x10(6)uL Hgb (11.5-15.5) g/dL Hct (30.0-51.3) % MCV (80-96) fL MCH (27.7-33.6) pg MCHC (32.2-35.4) g/dL RDW (11.5-15.5) % Plt Count (125-369) X10(3)uL MPV (7.4-10.4) fL Neut % (Auto) (46-82) % Lymph % (Auto) (13-37) % Lewis % (Auto) (4-12) % Eos % (Auto) (1.0-5.0) % Baso % (Auto) (0-2) % Neut # (Auto) (1.6-8.3) # Lymph # (Auto) (0.6-5.0) # Lewis # (Auto) (0.0-1.3) # Eos # (Auto) (0.0-0.8) # Baso # (Auto) (0.0-0.2) # POC VBG pH 7.41 (7.31-7.41) POC VBG pCO2 36.1 L (41-51) mmHG POC VBG HCO3 23.1 (23-28) mmol/L POC VBG Total CO2 24 (24-29) mmol/L POC VBG Base Excess -2 (-2-3) mmol/L Sodium (135-145) mmol/L Potassium (3.5-5.3) mmol/L Chloride (100-110) mmol/L Carbon Dioxide (21-32) mmol/L BUN (7-18) mg/dL Creatinine (0.55-1.02) mg/dL Est Cr Clr Drug Dosing mL/min Estimated GFR (MDRD) (>60) BUN/Creatinine Ratio (9-20) Glucose (80-116) mg/dL Calcium (8.6-10.2) mg/dL Troponin I (<0.017-0.056) ng/mL Meds: Medications Generic Name Dose Route Start Last Admin Trade Name Ramonita PRN Reason Stop Dose Admin Insulin Human Regular 100 unit 100 mls @ 10.97 mls/hr 02/25/19 21:15 21:16 / Sodium Chloride IV 0.1 units/kg/hr TITRATE [facility]INA 10.97 mls/hr Administration Protocol 0.1 UNITS/KG/HR Sodium Chloride 1,000 mls @ 150 mls/hr 02/25/19 21:15 02/25/19 21:41 Normal Saline IV 999 mls/hr ASDIRECTED HINA Infusion Sodium Chloride 10 ml 02/25/19 21:01 02/25/19 21:15 Saline Flush FLUSH 10 ml ASDIRECTED PRN Administration Keep Vein Open Departure - Departure Time of Disposition: 22:06 Disposition: Refer to Observation Condition: Good Clinical Impression: Type 1 diabetes - Discharge Information Referrals: Obed Kelly PA [Primary Care Provider] - - Problem List & Annotations (1) High anion gap metabolic acidosis SNOMED Code(s): 20154395 Code(s): E87.2 - ACIDOSIS Status: Acute Current Visit: Yes (2) Hyperglycemia SNOMED Code(s): 59649887 Code(s): R73.9 - HYPERGLYCEMIA, UNSPECIFIED Status: Acute Current Visit: Yes (3) Type 1 diabetes SNOMED Code(s): 48299250 Code(s): E10.9 - TYPE 1 DIABETES MELLITUS WITHOUT COMPLICATIONS Status: Acute Current Visit: No Qualifiers: Diabetes mellitus complication status: with neurologic complications (4) Dehydration SNOMED Code(s): 07265859 Code(s): E86.0 - DEHYDRATION Status: Acute Current Visit: Yes (5) Weakness SNOMED Code(s): 89588491 Code(s): R53.1 - WEAKNESS Status: Acute Current Visit: No - Problem List Review Problem List Initiated/Reviewed/Updated: Yes - My Orders Last 24 Hours: My Active Orders 02/25/19 21:00 Peripheral IV Insertion Adult [OM.PC] Routine 02/25/19 21:01 UA W/MICROSCOPIC [URIN] Stat Sodium Chloride 0.9% [Saline Flush] 10 ml FLUSH ASDIRECTED PRN 02/25/19 21:15 Insulin Regular, Human [HumuLIN R] 100 unit Sodium Chloride 0.9% [Normal Saline] 99 ml IV TITRATE Sodium Chloride 0.9% [Normal Saline] 1,000 ml IV ASDIRECTED 02/25/19 21:16 PRO B-TYPE NATRIUR PEPT,BNPPRO [CHEM] Stat 02/25/19 21:28 Blood Glucose Check, Bedside [RC] ONETIME 02/25/19 21:35 Oxygen Therapy Adult [Oxygen Therapy, ED] [RC] ASDIRECTED 02/25/19 21:50 Chest 1V Frontal [CR] Stat EKG 12 Lead [EK] Routine 02/25/19 21:51 EKG Documentation Completion [RC] ASDIRECTED - Assessment/Plan Last 24 Hours: My Active Orders 02/25/19 21:00 Peripheral IV Insertion Adult [OM.PC] Routine 02/25/19 21:01 UA W/MICROSCOPIC [URIN] Stat Sodium Chloride 0.9% [Saline Flush] 10 ml FLUSH ASDIRECTED PRN 02/25/19 21:15 Insulin Regular, Human [HumuLIN R] 100 unit Sodium Chloride 0.9% [Normal Saline] 99 ml IV TITRATE Sodium Chloride 0.9% [Normal Saline] 1,000 ml IV ASDIRECTED 02/25/19 21:16 PRO B-TYPE NATRIUR PEPT,BNPPRO [CHEM] Stat 02/25/19 21:28 Blood Glucose Check, Bedside [RC] ONETIME 02/25/19 21:35 Oxygen Therapy Adult [Oxygen Therapy, ED] [RC] ASDIRECTED 02/25/19 21:50 Chest 1V Frontal [CR] Stat EKG 12 Lead [EK] Routine 02/25/19 21:51 EKG Documentation Completion [RC] ASDIRECTED Plan: upon arrival, Meliton was lethargic diaphoretic and blood pressure was 70s systolic. IV access was obtained with some difficulty, IV fluids were placed as a bolus of normal saline. I will start a drip of insulin. Her glucose was more than 500 with anion gap of 23 although the pH was normal. We'll admit her overnight for observation, blood sugar control and rehydration.
[2019-02-25] MEDS: Sodium Chloride 0.9% 1,000 ML IV SCH (22:37)
[2019-02-26] MEDS: Sodium Chloride 0.9% 1,000 ML IV SCH (03:40)
[2019-02-26] MEDS: Insulin Lispro 100 Unit/ML 3 ML KwikPen SUBCUT PRN ×3 (04:51→10:12)
[2019-02-26] MEDS ORDERED: hydrOXYzine HCl 25 MG Tab PO PRN (07:54)
[2019-02-26] MEDS ORDERED: Sodium Chloride 0.9% 1,000 ML IV SCH (08:44)
[2019-02-26] MEDS ORDERED: Ibuprofen 800 MG Tab PO PRN (09:00)
[2019-02-26] MEDS: Benztropine 1 MG Tab PO SCH ×2 (10:01→21:53)
[2019-02-26] MEDS: Haloperidol 5 MG Tab PO SCH ×2 (10:01→21:54)
[2019-02-26] MEDS: Nicotine 21 MG/24 Hr Patch TRDERM SCH (10:02)
--- NOTE | 2019-02-26 12:51 | HP ---
ADMISSION DATE: 02/25/2019 History is from the patient and her record. She is a quite poor historian. CHIEF COMPLAINT: Diabetes, uncontrolled, with severe hyperglycemia. HISTORY OF PRESENT ILLNESS: Ms. Robb is a 53-year-old woman from [place], [place], with a history of uncontrolled type 2 diabetes and severe lack of medication compliance, schizoaffective disorder, obesity, and likely Parkinson disease with left upper extremity tremor. She has not been complying with her medications. She states she has been using her pump, but it has not been evaluated in over a month, and she has given a history that her pump had quit working. She has not been injecting herself with insulin at home and it is quite unclear as to whether she has actually been taking any insulin. She came into the emergency room because of dizziness, weakness, and she was found to have a blood glucose of 573. Her white count was 8800 and her hemoglobin 16.6. She was started on IV insulin drip. This was discontinued approximately 0400 hours, and she is now switched to basal and bolus sliding scale insulin. The patient denies recent symptoms of systemic infection with fever, chills, sweats, cough, URI symptoms, nausea, or diarrhea. PAST MEDICAL HISTORY: Longstanding type 2 diabetes with poor medication compliance and several episodes of hyperglycemia. She has a history of bipolar schizoaffective disorder, left upper extremity tremor, question med-related parkinsonism, fibromyalgia, ankylosing spondylitis. She reports arthritis in the back and shoulders, COPD. She is status post appendectomy, cholecystectomy, abdominal hysterectomy, umbilical herniorrhaphy, bilateral knee arthroscopies. MEDICATIONS: As listed by [facility]: 1. Cogentin 1 mg b.i.d. 2. Duloxetine 60 mg at bedtime. 3. Ibuprofen 800 mg t.i.d. p.r.n. 4. Haloperidol 2.5 mg b.i.d. 5. Basaglar 30 units at bedtime. 6. NovoLog 20 units t.i.d. with meals. 7. Lorazepam 1.5 mg at bedtime. 8. Seroquel 400 mg 2 tablets at bedtime. 9. Hydroxyzine 25 mg b.i.d. p.r.n. anxiety. 10.Trazodone 150 mg at bedtime. 11.Diclofenac 75 mg b.i.d. Again, compliance is unlikely with most of these medicines. ALLERGIES: Penicillin, reaction unknown. She says this occurred when she was much younger. HABITS: [id number]-day cigarette smoker. No alcohol. Two to three servings of caffeinated beverage per day, usually Diet Dr. Hines. FAMILY AND SOCIAL HISTORY: The patient was adopted. She does not know of parents or siblings. She was in 2002. She is 2, para 2, with one daughter living down the [address] from her at [facility] in [place] and son living in a care home in [place]. REVIEW OF SYSTEMS: GENERAL: No seizure, syncope, or recent documented weight change. SKIN: Negative for rash. She does have an abrasion on the left knee. She states she falls a lot. HEENT: No recent changes in hearing or vision. PULMONARY: No sore throat or URI. No cough or purulent sputum. She does get dyspneic with activity. CARDIOVASCULAR: No chest pain or palpitations. GASTROINTESTINAL: No abdominal pain, nausea, or diarrhea. EXTREMITIES: No swelling or skin rash. PHYSICAL EXAMINATION: GENERAL: She is alert, but an extremely poor and obviously unreliable historian. VITAL SIGNS: Blood pressure 130/73, pulse 89 and regular, respirations 20, O2 saturation 94% on room air, temperature 96.8, weight 225 pounds. SKIN: Anicteric, warm, dry. There is a 3 cm abrasion, left knee, inferior to the patella. No other areas of skin trauma or rash noted. HEENT: Show clear TMs. Pupils are equal and reactive. Oropharynx is clear. She is edentulous. NECK: Supple. LUNGS: Clear with good air movement at the bases. HEART: Regular. No murmur, rub, or gallop heard. ABDOMEN: Obese, soft, nontender. No masses. No organomegaly. EXTREMITIES: Show no edema at the ankles. She has pulses that are palpable, both posterior tibial and dorsalis pedis on each foot. Ankle jerk reflex is normal on the right, absent on the left. NEUROLOGIC: Reveals her to be a poor historian. She has a parkinsonian tremor of the left upper extremity. Gait at home is with a cane or a walker. It is unsteady, broad-based. LABORATORY DATA: White count 8800, hemoglobin 16.6, MCV 91, platelets 395. Sodium 126, potassium 3.9, BUN 11, creatinine 1.0, glucose 573, calcium 8.7. Troponin less than 0.017. ProBNP 333. Urinalysis positive for glycosuria only. Albumin 2.3. ASSESSMENT: 1. Severe diabetes with noncompliance and hyperglycemia and pseudohyponatremia. 2. Schizoaffective disorder, on multiple medications. 3. Parkinsonism, likely medication related, with left upper extremity tremor. 4. Low mental function. PLAN: She is now on basal bolus insulin. She has an insulin pump, but it is not clear if this has actually been functioning lately, and she does not know any of her settings. We will treat her diabetes acutely with plans for longer-term care at the care home where medication compliance will be assured, and she will have cares for her poor ambulatory ability, etc. We will continue to provide palliative care for this patient's underlying poor mobility, low mental function, and chronic disease state. /[id number] ROSSANA/LESLI
[2019-02-26] MEDS ORDERED: LORazepam 1 MG Tab PO PRN (14:26)
[2019-02-26] MEDS: Insulin Lispro 100 Unit/ML 3 ML KwikPen SUBCUT SCH ×2 (17:59→22:20)
[2019-02-26] MEDS ORDERED: traZODone 50 MG Tab PO SCH (21:00)
[2019-02-26] MEDS ORDERED: LORazepam 0.5 MG Tab PO SCH (21:00)
[2019-02-26] MEDS ORDERED: LORazepam 1 MG Tab PO SCH (21:00)
[2019-02-26] MEDS ORDERED: DULoxetine 60 MG Cap PO SCH (21:00)
[2019-02-26] MEDS ORDERED: Insulin Glargine,Human Rec. Analog 100 Units/ML 3 ML Pen SUBCUT SCH (21:00)
[2019-02-26] MEDS ORDERED: QUEtiapine 100 MG Tab PO SCH (21:00)
[2019-02-27] MEDS: Insulin Lispro 100 Unit/ML 3 ML KwikPen SUBCUT SCH (07:39)
[2019-02-27] MEDS: Haloperidol 5 MG Tab PO SCH (08:42)
[2019-02-27] MEDS: Benztropine 1 MG Tab PO SCH (08:43)
--- NOTE | 2019-02-27 08:44 | CR ---
INDICATION: Short of breath. CHEST ONE VIEW: Portable AP semi-upright view of the chest 02/25/19 was compared with 02/08/19 and 04/26/18. The pulmonary vasculature appears less prominent than on the previous study suggesting resolved or almost completely resolved CHF. The heart did not appear grossly enlarged but was prominent and is emphasized by the poor inspiration. Overlying EKG leads are noted. A definite active infiltrate or effusion was not identified. IMPRESSION: Somewhat improved appearance of the chest. MTDD
[2019-02-27 08:51] VITALS: BP 125/79
[2019-02-27] MEDS: Nicotine 21 MG/24 Hr Patch TRDERM SCH (10:30)
--- NOTE | 2019-02-27 11:09 | PN ---
DATE SEEN: 02/27/2019 CHIEF COMPLAINT: Diabetes type 1. HISTORY OF PRESENT ILLNESS: This is a 53-year-old female who was admitted for hyperglycemia, noncompliance, and polypharmacy. She feels better today. Her sugars are well controlled, around 200, and she is stronger and able to ambulate, ready to go home. REVIEW OF SYSTEMS: No chest pain. No shortness of breath. She has a chronic cough. No fever. ALLERGIES: Recorded. MEDICATIONS: Recorded. PHYSICAL EXAMINATION: VITAL SIGNS: Her blood pressure today is 125/79, pulse is 94, oxygenation 92% on room air. ENT: Negative. CARDIOVASCULAR: Normal. CHEST: Coarse crepitations. EXTREMITIES: No edema. MENTAL STATUS: Normal affect and alert. LABORATORY DATA: Glucose today is 204. Sodium is up to 134. IMPRESSION: 1. Hyperglycemia. 2. Uncontrolled type 1 diabetes. 3. Polypharmacy. 4. Schizoaffective disorder. PLAN: The patient will be discharged to home today and plan is for her to go to the retirement on March 09, 2019. /[id number] RONNY/LESLI
--- NOTE | 2019-03-04 09:12 | DISCH ---
DISCHARGE DATE: 02/27/2019 REASON FOR ADMISSION: 1. Type 1 diabetes. 2. Hyperglycemia. 3. Pseudohyponatremia. 4. Polypharmacy. 5. Weakness. 6. Dehydration. BRIEF HISTORY: This is a 53-year-old female, known to have type 1 diabetes that is poorly controlled. She was admitted with hyperglycemia and high anion gap metabolic acidosis. She was treated with IV fluids and insulin and has improved enough to go home today. She has schizoaffective disorder and is on several antipsychotics. She has had multiple falls at home, and she has been deemed unsafe and is going to the detention on March 09. DISCHARGE MEDICATIONS: I will discharge her home with home health today on: 1. Benztropine 1 mg b.i.d. 2. Duloxetine 60 mg a day. 3. I will discontinue hydroxyzine, but she will go home on insulin NovoLog subcutaneously. 4. Seroquel 800 mg at bedtime. 5. Trazodone 150 mg at bedtime. FOLLOWUP: She will see PCP on Saturday. In the meantime, home health will follow up over the weekend. Please note that, I spent more than 35 minutes in the discharge of the patient. /[id number] RONNY/LESLI
== END 2019-02-27 11:00 | disposition home health service (06) | DRG 638 ==
LOC: FB.ED 20:58 → FB.ICU 23:02 → UNDOADMOB 23:02 → OBSVTOIN 02-26 12:23 → INTOOBSV 02-26 12:23 → FB.MS 02-26 12:23
PROVIDERS: ADMIT Family Medicine; ATTEND Family Medicine
DX: E10.65 Type 1 diabetes mellitus with hyperglycemia (principal); N39.0 Urinary tract infection, site not specified; F33.9 Major depressive disorder, recurrent, unspecified; E10.21 Type 1 diabetes mellitus with diabetic nephropathy; E10.40 Type 1 diabetes mellitus with diabetic neuropathy, unspecified; F25.0 Schizoaffective disorder, bipolar type; F17.210 Nicotine dependence, cigarettes, uncomplicated; E86.0 Dehydration; J44.9 Chronic obstructive pulmonary disease, unspecified; Z96.41 Presence of insulin pump (external) (internal); T38.3X6A Underdosing of insulin and oral hypoglycemic [antidiabetic] drugs, initial encounter; Z91.138 Patient's unintentional underdosing of medication regimen for other reason; Y92.009 Unspecified place in unspecified non-institutional (private) residence as the place of occurrence of the external cause; Z91.128 Patient's intentional underdosing of medication regimen for other reason; G20 Parkinson's disease; H54.7 Unspecified visual loss; M19.90 Unspecified osteoarthritis, unspecified site; M79.7 Fibromyalgia; M54.9 Dorsalgia, unspecified; G89.29 Other chronic pain; F41.9 Anxiety disorder, unspecified; F43.10 Post-traumatic stress disorder, unspecified; E66.9 Obesity, unspecified; Z68.34 Body mass index [BMI] 34.0-34.9, adult; R51 Headache; R29.6 Repeated falls; Z87.01 Personal history of pneumonia (recurrent); M45.9 Ankylosing spondylitis of unspecified sites in spine; F79 Unspecified intellectual disabilities; Z91.5 Personal history of self-harm; Z79.4 Long term (current) use of insulin; Z88.1 Allergy status to other antibiotic agents; Z91.030 Bee allergy status; Z91.018 Allergy to other foods; Z88.0 Allergy status to penicillin; Z88.2 Allergy status to sulfonamides; Z88.8 Allergy status to other drugs, medicaments and biological substances; Z90.49 Acquired absence of other specified parts of digestive tract; Z90.710 Acquired absence of both cervix and uterus
CPT/HCPCS: 36415; 71045; 80048; 80053; 81001; 82803; 82962; 83880; 84484; 85025; 93005; 96365; 96366; 99285-25; A9270-GY; J1815; J1815-GY; J7030